=== PATIENT | female | born 1930 | race Caucasian/White ===

== ENCOUNTER 2016-07-16 10:02 | Inpatient (IN) | payer OTHER ==
[~2016-07-16] VITALS: Ht 152.4 cm; Wt 54.4 kg
[~2016-07-16 10:02] MED LIST: ALENDRONATE SOD70 MG PO; ALEVE220 MG PO; ALPRAZOLAM0.5 MG PO; ANTIVERT 12.512.5 MG PO; BUTALB/APAP/CAF1 TAB PO; CALCIUM/VITAMIN1 TA1 PO; COUMADIN 5 MG TA5 MG PO; DOCUSATE SODIU100 MG PO; FISH OIL CONC1000 MG PO; MULTIVITAMIN1 TAB PO; PERCOCET 325 MG1 TA2 PO; SENNA8.6 MG PO; ULTRAM(MONOGRAP50 MG PO
--- NOTE | 2016-07-16 10:05 | ED MVC/FALL/TRAUMA COMPLAINT ---
History of Present Illness General Chief Complaint: Hip Injury Stated Complaint: R SHOULDER PAIN, L HIP PAIN Source: patient, old records Exam Limitations: no limitations Vital Signs & Intake/Output Vital Signs & Intake/Output Vital Signs Date Time Temp Pulse Resp B/P B/P Pulse O2 O2 Flow FiO2 Mean Ox Delivery Rate 07/17 0742 98.2 89 20 113/69 97 Nasal 2.0L Cannula 07/17 0208 98.1 91 18 123/74 98 Nasal 2.0L Cannula 07/17 0000 95 Nasal 2.0L Cannula 07/16 2309 97.7 86 18 141/74 95 Nasal 2.0L Cannula 07/16 1518 97.4 95 18 159/75 98 Room Air 07/16 1350 20 100 Room Air 07/16 1349 104 156/78 ED Intake and Output 07/17 0000 07/16 1200 Intake Total 195 Output Total 60 Balance 135 Intake, IV 75 Intake, Oral 120 Output, Urine 60 Patient 120 lb Weight Allergies Coded Allergies: NO KNOWN ALLERGIES (03/02/12) Reconcile Medications Alprazolam 0.5 MG TABLET 1 TAB PO QPM SLEEP (Reported) Amlodipine Besylate 10 MG TABLET 1 TAB PO DAILY HTN (Reported) Butalb/Acetaminophen/Caffeine (Uaurqk-Owkpmkxo-Qcvx 50-325-40) 50 MG-325 MG-40 MG TABLET 1 TAB PO BIDP PRN HEADACHE (Reported) Calcium Carb & Citrate/Vit D3 (Calcium + D3 ER Tablet) 600 MG CALCIUM-500 UNIT TABLET.ER 1 TAB PO DAILY OSTEOPOROSIS (Reported) Multivitamin (Daily Multiple Vitamin) 1 EACH TABLET 1 TAB PO DAILY SUPPLEMENT (Reported) Naproxen 250 MG TABLET 1 TAB PO BID PAIN (Reported) Sennosides (Senna) 8.6 MG TABLET 2 TAB PO QPM CONSTIPATION (Reported) Tramadol HCl 50 MG TABLET 1 TAB PO TID PAIN (Reported) Triage Nurses Notes Reviewed? yes Onset: Abrupt Duration: constant Timing: single episode today Severity: severe Severity Numbers: 10 Method of Injury: direct blow, fall Loss of Consciousness: no loss of consciousness HPI: Patient is a 85-year-old female with past medical history of hypertension, history of breast cancer, cholecystectomy, mastectomy of the left breast, vertebroplasty, lumbar discectomy. AND RIGHT ARTHOPLASTY KNEE MAR 2014, osteoporosis who presents emergency room for mechanical fall which patient woke up in her normal state of health she was ambulating with slippers in her kitchen where she tripped on her slippers resulting in patient falling to the ground on the right side of her body resulting in right shoulder pain and severe stabbing left hip pain. Patient was brought in by ambulance cervical collar in place. Patient denies any preceding episode a lightheaded or dizzy sensation. Denies any neck or low back pain. Denies any chest pain shortness of breath abdominal pain. No head strike or loss of consciousness. Patient does state that recently she had an MRI of her left leg joint concerns of stress factor dictation stated below PATIENT: SERENA OROURKE PRESENT AGE: 85 PATIENT ACCOUNT NO: [id number] : 32 LOCATION: MRI ORDERING PHYSICIAN: NILE DUMONT MD SERVICE DATE: 06/20/16 EXAM TYPE: MRI - MRI-LT HIP W/O JULIA EXAMINATION: MR HIP WITHOUT CONTRAST, LEFT CLINICAL INFORMATION: Left hip pain. Rule out stress fracture. COMPARISON: None TECHNIQUE: MRI without contrast was performed on the left hip. FINDINGS: There is focal cortical thickening, focally prominent in a transverse linear configuration involving the lateral cortex of the proximal femoral diaphysis, 11 cm distal to the greater trochanter, with mild periosteal edema and prominent endosteal marrow edema consistent with an incomplete stress fracture. This involves approximately one-third of the cortical circumference. There is mild diffuse left hip joint space narrowing with a small effusion. No muscle strain or tear. IMPRESSION: Incomplete stress fracture of the proximal femoral diaphysis involving the lateral cortex as detailed in the comments. (TRI PRIDE) Past History Medical History Any Pertinent Medical History? see below for history Neurological: NONE EENT: NONE Cardiovascular: NONE Respiratory: NONE Gastrointestinal: BRAXTON Hepatic: NONE Renal: NONE Musculoskeletal: VERTEBROPLASTY Psychiatric: anxiety Endocrine: NONE Blood Disorders: anemia Cancer(s): breast cancer, R MASTECTOMY DOBIE MAN/Reproductive: NONE History of MRSA: No History of VRE: No History of CDIFF: No Pneumonia Vaccine: 02/25/09 Influenza Vaccine: 11/24/13 Surgical History Surgical History: RIGHT KNEE ARTHOPLASTY Psychosocial History Who do you live with Spouse Services at Home None What is your primary language Bengali Family History Hx Contributory? No (TRI PRIDE) Review of Systems Review of Systems Constitutional: Reports: no symptoms. Eyes: Reports: no symptoms. Ears, Nose, Throat, Mouth: Reports: no symptoms. Respiratory: Reports: no symptoms. Cardiovascular: Reports: no symptoms. Gastrointestinal/Abdominal: Reports: no symptoms. Genitourinary: Reports: no symptoms. Musculoskeletal: Reports: see HPI, joint pain. Skin: Reports: no symptoms. Neurological/Psychological: Reports: no symptoms. All Other Systems: Reviewed and Negative (TRI PRIDE) Physical Exam Physical Exam General Appearance: moderate distress Comments: HEENT: Normal EENT exam Neck: Supple, no lymphadenopathy, normal range of motion without pain or tenderness Cervical collar in place no central spinous tenderness Back: Nontender, no CVA tenderness. No central spinous tenderness Cardiovascular: Regular rate and rhythms no murmurs rubs or gallops, normal JVP Respiratory: Chest nontender. No respiratory distress.breath sounds clear to auscultation bilaterally Abdomen: Soft, nontender nondistended, no appreciable organomegaly. Normal bowel sounds. No ascites Extremity: No edema, no calf tenderness to palpation, normal and equal pulses. Right shoulder normal inspection generalized glenohumeral point tenderness Left hip noted severe point tenderness unable to actively move hip Left knee normal inspection Left lower extremity dermatomes intact pedal pulse +2 Neuro: Alert oriented x3, motor sensory normal, Skin: No appreciable rash on exposed skin, skin is warm and dry. Psych: Mood and affect is normal, memory and judgment is normal. Core Measures ACS in differential dx? No Severe Sepsis Present: No Septic Shock Present: No (TRI PRIDE) Progress Differential Diagnosis: aoritic dissection, abd injury, C/T/L spine injury, ext injury, ICH, pelvis injury, pnemothorax, spinal cord injury, FRACTURE Plan of Care: Orders Procedure Date/time Status Regular Diet 07/17 D Active Regular Diet 07/17 B Complete PROTHROMBIN TIME 07/17 06 Complete CBC WITHOUT DIFFERENTIAL 07/17 06 Complete BASIC ELECTROLYTES PLUS BUN&CR 07/17 06 Complete Wound Care/Dressing 07/17 0449 Active Regular Diet 07/16 D Complete Vital Signs 07/17 2239 Active Teach/Educate 07/17 2239 Active Pain Treatment and Response 07/17 2239 Active Nutritional Intake, Monitor 07/17 2239 Active Isolation 07/17 2239 Active Intake & Output 07/17 2239 Active Patient Care Conference 07/17 2239 Active Activity/Ambulation 05/23 2240 Active Pathway - chart 07/16 1454 Active FingerStick- Glucose 07/16 1453 Complete Code Status 07/16 1410 Active Hernández, Insertion/Removal/Asses 07/16 1408 Complete CULTURE,URINE 07/16 1408 Active URINALYSIS 07/16 1408 Complete PT Evaluate & Treat 07/16 UNK Active Activity/Ambulation 07/16 UNK Complete Current Medications Sig/Edenilson Start time Last Medication Dose Stop Time Status Admin Warfarin Sodium 5 MG COUMADIN 1700 ONE 07/17 1700 AC (Coumadin) 07/17 1701 Tramadol HCl 50 MG TID 07/17 1000 AC 07/17 (Ultram) 0946 Alprazolam 0.5 MG AT BEDTIME 07/16 2200 AC 07/16 (Xanax) 07/23 2158 2258 Senna/Docusate Sodium 2 TAB DAILY NEEDED PRN 07/16 1630 AC 07/17 (Senokot S) 0946 Amlodipine Besylate 10 MG DAILY 07/16 1628 AC 07/17 (Norvasc) 0945 Acetaminophen 325 MG Q4P PRN 07/16 1500 AC (Tylenol) Morphine Sulfate 4 MG Q4P PRN 07/16 1500 AC (Morphine) Oxycodone/ 1 TAB Q4P PRN 07/16 1500 AC Acetaminophen (Percocet) Laboratory Tests 07/17/16 1000: Anion Gap 8, Estimated GFR 60, BUN/Creatinine Ratio 22.2, PT 10.8, INR 1.03, CBC w Diff NO MAN DIFF REQ, RBC 2.86 L, MCV 92.9, MCH 31.3 H, RDW 14.6 H, MPV 8.9 , Gran % 78.0 H, Lymphocytes % 15.0 L, Monocytes % 6.7, Eosinophils % 0, Basophils % 0.3, Absolute Granulocytes 6.7 H, Absolute Lymphocytes 1.3, Absolute Monocytes 0.6, Absolute Eosinophils 0, Absolute Basophils 0, PUBS MCHC 33.7 07/16/16 1410: Urine Color YEL, Urine Clarity CLEAR, Urine pH 7.0, Ur Specific Dale 1.015, Urine Protein NEG, Urine Ketones TRACE H, Urine Nitrite NEG, Urine Bilirubin NEG, Urine Urobilinogen 0.2, Ur Leukocyte Esterase NEG, Ur Microscopic EXAM NOT REQUIRED, Urine Hemoglobin NEG, Urine Glucose 100 H Microbiology 07/16 1410 URINE ROUT: Urine Culture - RES On examination there is concerns of left FEMORAL FX Patient's extremities were neurovascularly intact X-rays confirm tomorrow fracture Dr. MUNGUIA discussed admission with in which she advised patient to not be placed with a splint at this time Discussed results with patient and family members were aware. Patient also had significant resolution of pain prior to admission (SELENE OLIVEROS,TRI) PATIENT SEEN AND EXAMINED WITH PA. CASE DISCUSSED WITH DR HAYES - WILL GO TO OR FROM ED. (NILDA WHITEHEAD,TYE) Diagnostic Imaging: Viewed by Me: Radiology Read. Radiology Impression: fracture Initial ED EKG: normal p-waves, normal QRS complex, normal sinus rhythm, 83 BPM, NSR Comments: PATIENT: SERENA OROURKE PRESENT AGE: 85 PATIENT ACCOUNT NO: [id number] : 32 LOCATION: [facility] ORDERING PHYSICIAN: TRI OLIVEROS SERVICE DATE: 07/16/16 EXAM TYPE: RAD - XRY-CHEST XRAY, ONE VIEW ONLY; XRY-FEMUR, LEFT 2 VIEWS; XRY-HIP 2-3 VIEWS, LEFT; XRY-SHOULDER COMPLETE-RIGHT EXAMINATION: Right shoulder, left femur, left hip and a chest. CLINICAL INFORMATION: Fall. Pain. COMPARISON: None TECHNIQUE: Right shoulder 4 views, left femur 2 views, left hip 2 views. Chest one view. FINDINGS: RIGHT SHOULDER: There is no visible acute fracture or dislocation. The glenohumeral joint space and AC joint is maintained. The soft tissues are normal. LEFT FEMUR: There is a displaced fracture left proximal femur. No additional fractures seen. The soft tissues are normal. LEFT HIP: There is no fracture or dislocation left hip. However there is displaced left proximal femoral fracture . The lower fracture fragment is rotated medially. The soft tissues are normal. CHEST: Both lungs are well-expanded and clear of acute pneumonic process. Heart size and pulmonary vascularity is normal. No gross bony abnormality seen. There are surgical emiliano in left axilla from previous intervention. There are no visible rib fractures on this exam. IMPRESSION: Displaced left proximal femoral fracture. There is medial rotation of the distal fragment. No fracture or dislocation involving the left hip or the right shoulder. Unremarkable chest exam. DICTATED BY: MARITO ARVIZU MD DATE/TIME DICTATED:07/16/161216 INSURANCE SERVICE REPRESENTATIVE:LUISA DATE/TIME TRANSCRIBED:07/16/161216 (TRI PRIDE) Departure Departure Disposition: STILL A PATIENT Condition: Stable Clinical Impression Primary Impression: Left femoral shaft fracture Referrals: JAMES GARCIA MD (PCP/Family) Departure Forms: Customer Survey General Discharge Information Admission Note Spoke With: EMILE GUTIERRES MD Documentation of Exam: Documentation of any treatments & extenuating circumstances including Concerns Regarding Discharge (functional status, medication knowledge or non-compliance, living conditions, etc.) that warrant an admission rather than observation: [ Patient requires orthopedic consultation, surgical intervention repeat labs and pain management.] (TRI PRIDE) PA/MANAGER OF DRILLING Co-Sign Statement Statement: ED Attending supervision documentation- [X] I saw and evaluated the patient. I have also reviewed all the pertinent lab results and diagnostic results. I agree with the findings and the plan of care as documented in the PA's/MANAGER OF DRILLING's documentation. [X] I have reviewed the ED Record and agree with the PA's/MANAGER OF DRILLING's documentation. [] Additions or exceptions (if any) to the PAs/MANAGER OF DRILLING's note and plan are summarized below: [] (NILDA WHITEHEAD,TYE) Critical Care Note Critical Care Note Critical Care Time: 30-74 min (TRI PRIDE)
--- NOTE | 2016-07-16 10:14 | NUR ---
PT BIBA FROM HOME S/P TRIP AND FALL TO GROUND. DENIES ANY HEADSTRIKE OR LOC. IS C/O LEFT FEMUR PAIN, RIGHT SHOULDER PAIN AND NECK PAIN. STATES THAT SHE WAS TOLD SHE HAS A STRESS FX TO HER LEFT FEMUR ALREADY DUE TO HAVING OSTEOPOROSIS AND A MEDICINE SHE IS ON. PT IS C-COLLARED FROM EMS WITH CARDBOARD SPLINT TO LOWER BODY. +DISTAL CMS NOTED.
--- NOTE | 2016-07-16 10:18 | NUR ---
DOMO Jo TO BEDSIDE FOR EVAL.
[2016-07-16 10:35] LABS: ABSOLUTE BASOPHIL COUNT 0 /CUMM (0.0-0.2); ABSOLUTE EOSINOPHIL COUNT 0.1 /CUMM (0.0-0.7); ABSOLUTE GRANULOCYTE CT 5.9 /CUMM (1.4-6.5); ABSOLUTE LYMPH COUNT 1.9 /CUMM (1.2-3.4); ABSOLUTE MONOCYTE COUNT 0.5 /CUMM (0.10-0.60); BASOPHIL % 0.3 % (0.0-2.0); EOSINOPHIL % 1.4 % (0-5); GRANULOCYTE % 69.3 % (42.2-75.2); HEMATOCRIT 36.5 % (37-47); MEAN CORPUSCULAR HGB 31.5 PG (27.0-31.0); MEAN CORPUSCULAR HGB CONC 33.8 G/DL (33.0-37.0); MEAN CORPUSCULAR VOLUME 93.1 FL (81.0-99.0); MEAN PLATELET VOLUME 8.4 FL (7.4-10.4); PLATELET COUNT 277 /CUMM (130-400); RBC DISTRIBUTION WIDTH 14.4 % (11.5-14.5); RED BLOOD CELL CT 3.92 /CUMM (4.20-5.40); WHITE BLOOD CELL COUNT 8.6 /CUMM (4.8-10.8)
--- NOTE | 2016-07-16 10:39 | NUR ---
LABS DRAWN AND SENT, LAV,SST,BLUE PINK AND COOK TOP.
--- NOTE | 2016-07-16 10:40 | NUR ---
IV EST. MEDICATED WITH 4MG MORPHINE, 0.5MG ATIVAN. PT STILL PRESENTS IN EXCRUCIATING PAIN, ORDER FOR ADDITIONAL 4MG MORPHINE (SEE MAR)
[2016-07-16 10:52] LABS: PT 9.8 SEC (9.4-12.5)
--- NOTE | 2016-07-16 10:52 | NUR ---
PT TO RAD.
[2016-07-16] MEDS ORDERED: TRAMADOL HCL50 M1 PO (12:00)
[2016-07-16] MEDS ORDERED: AMLODIPINE BESY10 M1 PO (12:00)
--- NOTE | 2016-07-16 12:19 | NUR ---
RETURNED FROM XRAY, REPORTS PAIN STILL 10/10 BUT DECLINED PAIN MEDS FOR PA UPON RE-EVAL.
--- NOTE | 2016-07-16 12:26 | RADIOLOGY REPORT ---
EXAMINATION: Right shoulder, left femur, left hip and a chest. CLINICAL INFORMATION: Fall. Pain. COMPARISON: None TECHNIQUE: Right shoulder 4 views, left femur 2 views, left hip 2 views. Chest one view. FINDINGS: RIGHT SHOULDER: There is no visible acute fracture or dislocation. The glenohumeral joint space and AC joint is maintained. The soft tissues are normal. LEFT FEMUR: There is a displaced fracture left proximal femur. No additional fractures seen. The soft tissues are normal. LEFT HIP: There is no fracture or dislocation left hip. However there is displaced left proximal femoral fracture . The lower fracture fragment is rotated medially. The soft tissues are normal. CHEST: Both lungs are well-expanded and clear of acute pneumonic process. Heart size and pulmonary vascularity is normal. No gross bony abnormality seen. There are surgical emiliano in left axilla from previous intervention. There are no visible rib fractures on this exam. IMPRESSION: Displaced left proximal femoral fracture. There is medial rotation of the distal fragment. No fracture or dislocation involving the left hip or the right shoulder. Unremarkable chest exam.
[2016-07-16] MEDS ORDERED: ALPRAZOLAM0.5 M4 PO (12:32)
[2016-07-16] MEDS ORDERED: BUTALB-ACETAMI1 EACH PO (12:32)
[2016-07-16] MEDS ORDERED: NAPROXEN250 M1 PO (12:32)
[2016-07-16] MEDS ORDERED: DAILY MULTIPLE1 EACH PO (12:33)
[2016-07-16] MEDS ORDERED: SENNA8.6 M3 PO (12:33)
[2016-07-16] MEDS ORDERED: CALCIUM + D3 E1 EACH PO (12:33)
--- NOTE | 2016-07-16 13:12 | History & Physical ---
YASEMIN MCALLISTER 07/16/16 1312: General Information and HPI MD Statement: I have seen and personally examined SERENA OROURKE and documented this H&P. The patient is a 85 year old F who presented with a patient stated chief complaint of left hip pain status post mechanical fall Source of Information: patient, family Exam Limitations: no limitations History of Present Illness: This is a 85-year-old lady with past medical history significant for osteoporosis, right knee total arthroplasty in 2015 for degenerative joint disease and osteoarthritis, lumbar discectomy, vertebroplasty, cholecystectomy, history of breast cancer status post mastectomy 23 years ago, insomnia, hypertension, headache, constipation presented to the [facility] emergency department with a left hip pain status post a mechanical fall. Of note patient has chronic left hip pain for which she follows her primary care doctor. Initially she was treated for bursitis based on x-ray findings, received cortisone shots. However she didn't get any relief after the medication. She got MRI hip which showed incomplete stress fracture at the site of proximal femur. she was seeing for left hip pain as an outpatient. She was brought to the hospital by ambulance today from home after sustaining a mechanical fall at home while ambulating in slippers in her kitchen. She reports she tripped on her slippers without precipitating symptoms. She denies any head trauma. She reports she fell on her side, and attempted to get up after the fall but was unable to do so. She started having worsening left hip pain radiating to knee, 10 out of 10, sharp and stabbing. Also reports mild right shoulder pain. She denies any loss of consciousness. She denies any dizziness or lightheadedness before the event. She denies any chest pain, difficulty breathing, racing of heart, cough, fever, chills. She denies any nausea, vomiting, abdominal pain, change in bladder or bowel habits. She denies any headache, numbness, weakness or tingling sensation. She denies any peripheral leg swelling. She denies any smoking, illicit drug use, alcohol abuse. She lives with her at home and she takes care of herself. Allergies/Medications Allergies: Coded Allergies: NO KNOWN ALLERGIES (03/02/12) Home Med list Alprazolam 0.5 MG TABLET 1 TAB PO QPM SLEEP (Reported) Amlodipine Besylate 10 MG TABLET 1 TAB PO DAILY HTN (Reported) Butalb/Acetaminophen/Caffeine (Tymjbb-Ujdxjhft-Nqee 50-325-40) 50 MG-325 MG-40 MG TABLET 1 TAB PO BIDP PRN HEADACHE (Reported) Calcium Carb & Citrate/Vit D3 (Calcium + D3 ER Tablet) 600 MG CALCIUM-500 UNIT TABLET.ER 1 TAB PO DAILY OSTEOPOROSIS (Reported) Multivitamin (Daily Multiple Vitamin) 1 EACH TABLET 1 TAB PO DAILY SUPPLEMENT (Reported) Naproxen 250 MG TABLET 1 TAB PO BID PAIN (Reported) Sennosides (Senna) 8.6 MG TABLET 2 TAB PO QPM CONSTIPATION (Reported) Tramadol HCl 50 MG TABLET 1 TAB PO TID PAIN (Reported) Compliance With Home Meds: GOOD Past History Travel History Traveled to [place] past 21 day No Medical History Neurological: NONE EENT: NONE Cardiovascular: NONE Respiratory: NONE Gastrointestinal: BRAXTON Hepatic: NONE Renal: NONE Musculoskeletal: VERTEBROPLASTY Psychiatric: anxiety Endocrine: NONE Blood Disorders: anemia Cancer(s): 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 EENTM: Denies: see HPI. Cardiovascular: Denies: chest pain, edema, orthopena, palpitations, peripheral edema, syncope. Respiratory: Denies: cough, hemoptysis, short of breath, sputum production, stridor, wheezing. GI: Denies: bloating, constipation, diarrhea, distention, nausea, vomiting. Genitourinary: Denies: discharge, dysuria, frequency, hematuria. Musculoskeletal: Denies: back pain, gout, joint pain. Skin: Denies: dryness, erythema, jaundice. Neurological/Psychological: Denies: confusion, depressed, dementia, headache, numbness, tingling, tremors. Exam & Diagnostic Data Last 24 Hrs of Vital Signs/I&O Vital Signs Date Time Temp Pulse Resp B/P B/P Pulse O2 O2 Flow FiO2 Mean Ox Delivery Rate 07/16 1350 20 100 Room Air 07/16 1349 104 156/78 07/16 1338 107 152/76 07/16 1219 96.4 84 20 160/74 100 Room Air 07/16 1010 98.7 99 22 181/85 100 Intake & Output 07/16 1600 07/16 0800 07/16 0000 Intake Total Output Total Balance Patient 54.431 kg Weight Physical Exam General Appearance Alert, Oriented X3, Cooperative, No Acute Distress Skin No Rashes, No Breakdown HEENT Atraumatic, PERRLA, EOMI, Mucous Membr. moist/pink Neck Supple, No JVD Lymphatic Cervical nl Cardiovascular Normal S1, Normal S2 Lungs Normal Air Movement Abdomen Normal Bowel Sounds, Soft, No Tenderness Neurological Normal Speech, Strength at 5/5 X4 Ext, Normal Tone, Sensation Intact Extremities No Clubbing, No Cyanosis, No Edema Vascular Normal Pulses, Pulses Symmetrical Assessment/Plan Assessment: This is a 85-year-old lady with past medical history significant for osteoporosis, right knee total arthroplasty in 2015 for degenerative joint disease and osteoarthritis, lumbar discectomy, vertebroplasty, cholecystectomy, history of breast cancer status post mastectomy 23 years ago, insomnia, hypertension, headache, constipation presented to the [facility] emergency department with a left hip pain status post a mechanical fall. Of note patient has chronic left hip pain for which she follows her primary care doctor. Initially she was treated for bursitis based on x-ray findings, received cortisone shots. However she didn't get any relief after the medication. She got MRI hip which showed incomplete stress fracture at the site of proximal femur. she was seeing for left hip pain as an outpatient. Vitals on admission-afebrile, heart rate 99, respiratory rate 22, blood pressure 181/85, saturating at 100% on room air. Pertinent labs on admission CT scan BEP normal Liver function tests normal Alkaline phosphatase 139 Chest x-ray-clear Hip x-ray IMPRESSION: Displaced left proximal femoral fracture. There is medial rotation of the distal fragment. No fracture or dislocation involving the left hip or the right shoulder. MRI without contrast was performed on the left hip as op There is focal cortical thickening, focally prominent in a transverse linear configuration involving the lateral cortex of the proximal femoral diaphysis, 11 cm distal to the greater trochanter, with mild periosteal edema and prominent endosteal marrow edema consistent with an incomplete stress fracture. This involves approximately one-third of the cortical circumference.There is mild diffuse left hip joint space narrowing with a small effusion. IMPRESSION: Incomplete stress fracture of the proximal femoral diaphysis involving the lateral cortex as detailed in the comments. Problem list 1. Left displaced proximal femur fracture 2. Hypertension 3. Headache 4. Constipation 5. Insomnia Left displaced proximal femur fracture She was brought to the hospital by ambulance today from home after sustaining a mechanical fall at home while ambulating in slippers in her kitchen. She denies any head trauma. She reports she fell on her side, and attempted to get up after the fall but was unable to do so. She started having worsening left hip pain radiating to knee, 10 out of 10, sharp and stabbing. Also reports mild right shoulder pain. She denies any loss of consciousness. She denies any dizziness or lightheadedness before the event. She got MRI hip which showed incomplete stress fracture at the site of proximal femur. she was seeing for left hip pain as an outpatient. * Admitted to general medicine floor for medical clearance and surgical repair * Monitor vitals closely every shift * Maintain oxygen saturation above 90% * provide supplemental oxygen if necessary * Orthopedic consult was placed * She is nothing by mouth for possible surgery tomorrow * IV fluids * Pain medication * Bowel regimen * Will follow-up with orthopedic recommendations Calculated RCRI * No history of heart disease * Not in acute congestive heart failure * No history of stroke * Not a diabetic patient * Kidney function tests were good * Low risk surgery She scored 0 points-0.4% cardiac risk. She is medically cleared for surgical repair of proximal femur Insomnia We continue home medication alprazolam 0.5 mg daily Hypertension Will continue amlodipine 10 mg daily Constipation Bowel regimen when necessary DVT prophylaxis Full code Nothing by mouth As Ranked By This Provider Problem List: 1. Left femoral shaft fracture Core Measures/Miscellaneous Acute Coronary Syndrome ACS Diagnosis: No Cerebrovascular Accident CVA/TIA Diagnosis: No Congestive Heart Failure CHF Diagnosis: No Venous Thromboembolism VTE Risk Factors: Age > 40 [facility] prophylaxis d/t: No contraindications No VTE Pharm Prophylaxis d/t: No contraindications VTE Diagnosis: No VTE Type: NONE VTE Confirmed by (Test): NONE Severe Sepsis Severe Sepsis Present: No Septic Shock Septic Shock Present: No Miscellaneous Documentation Attending Case Discussed With: IZATAY Hernandez MD Primary Care Physician: JOSE WHITEHEAD,JAMES Patient sees these Specialists orthopedics Level of Patient Care: General Medicine TRELL AUSTIN 07/16/16 1323: Resident Review Statement Resident Statement: examined this patient, discussed with international marketing coordinator, agreed with international marketing coordinator Other Findings: This is a 85 YO F w/ PMH of HTN, Breast cancer s/p mastectomy(Lt.), vertebroplasty, lumbar discectomy, Rt arthroplasty of knee (2014), osteoprosis who presents to [place] ED s/p mechanical fall. Please see above for more details. Physical exam on admission patient is tachycardic, vitals otherwise stable. Neck : Supple, no JVD, CV: RRR, no murmurs. Lungs: CTA BL. Abd: NL BS, Soft, NT, ND. Ext: No edema or calf tenderness. LLE internally rotated has tenderness to palpation. Pulse and sensation intact. Neurology: AAOx3. CN 3-12 wnl, normal speech. Labs significant for elevated alkaline phosphatase to 139, glucose 139, GFR 53, otherwise unremarkable. UA unremarkable. EKG: SR@83, no ST-T wave changes. Chest x-ray: No acute pathology, no rib fracture Lt femur x-ray, Lt hip x-ray, Rt. shoulder x-ray: Displaced left proximal femoral fracture. There is medial rotation of the distal fragment. No fracture or dislocation involving the left hip or the right shoulder. Assessment: 1-displaced left proximal femoral fracture 2-history of hypertension; chronic/stable Plan: * Vitals per protocol * Ortho consult placed appreciate recommendations. * Cardiac risk assessment preop: The patient does not have any history of CAD, heart failure, CVA, diabetes on insulin, creatinine is 1 and surgery is not considered as high risk. RCRI is 0.4. There is 1% risk of sudden cardiac , nonfatal CO, nonfatal cardiac arrest during surgery. 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 dvt prophyalxis as per ortho. d/wed patient and family bedisde in ER.
--- NOTE | 2016-07-16 13:50 | NUR ---
NO BP ON LEFT ARM DUE TO MASTECTOMY, PINK RESTRICTION BAND PLACED BY BRENDA PEREZ
--- NOTE | 2016-07-16 13:54 | Cons- Orthopedic ---
General Information and HPI Consulting Request Date of Consult: 07/16/16 Requested By: IZA WHITEHEAD,TAY Reason for Consult: LEFT FEMUR FRACTURE Source of Information: patient, family, old records Exam Limitations: no limitations History of Present Illness: The patient is an 85-year-old white female with past medical history significant for hypertension, history of breast cancer s/p mastectomy, vertebroplasty, lumbar discectomy, hx right total knee arthroplasty (2014), cholecystectomy, osteoporosis, and a known stress fracture of the left femur that she was seeing for as an outpatient. She was biba today from home after sustaining a mechanical fall at home while ambulating in slippers in her kitchen. She reports she tripped on her slippers without precipitating symptoms. She denies any head trauma. She reports she fell on her side, and attempted to get up after the fall but was unable to do so. She denies dizziness, shortness of breath, and chest pain. Allergies/Medications Allergies: Coded Allergies: NO KNOWN ALLERGIES (03/02/12) Home Med List: Alprazolam 0.5 MG TABLET 1 TAB PO QPM SLEEP (Reported) Amlodipine Besylate 10 MG TABLET 1 TAB PO DAILY HTN (Reported) Butalb/Acetaminophen/Caffeine (Bgpxkh-Plqvhvra-Sgzv 50-325-40) 50 MG-325 MG-40 MG TABLET 1 TAB PO BIDP PRN HEADACHE (Reported) Calcium Carb & Citrate/Vit D3 (Calcium + D3 ER Tablet) 600 MG CALCIUM-500 UNIT TABLET.ER 1 TAB PO DAILY OSTEOPOROSIS (Reported) Multivitamin (Daily Multiple Vitamin) 1 EACH TABLET 1 TAB PO DAILY SUPPLEMENT (Reported) Naproxen 250 MG TABLET 1 TAB PO BID PAIN (Reported) Sennosides (Senna) 8.6 MG TABLET 2 TAB PO QPM CONSTIPATION (Reported) Tramadol HCl 50 MG TABLET 1 TAB PO TID PAIN (Reported) Current Medications: Current Medications Sig/Edenilson Start time Last Medication Dose Route Stop Time Status Admin Lorazepam 0 .STK-MED ONE 07/16 1033 DC .ROUTE Lorazepam 0.5 MG ONCE ONE 07/16 1030 DC 07/16 IV 07/16 1031 1040 Morphine Sulfate 0 .STK-MED ONE 07/16 1336 DC .ROUTE Morphine Sulfate 6 MG ONCE ONE 07/16 1315 DC 07/16 IV 07/16 1316 1346 Morphine Sulfate 4 MG ONCE ONE 07/16 1045 DC 07/16 IV 07/16 1046 1040 Morphine Sulfate 0 .STK-MED ONE 07/16 1042 DC .ROUTE Morphine Sulfate 0 .STK-MED ONE 07/16 1034 DC .ROUTE Morphine Sulfate 4 MG ONCE ONE 07/16 1030 DC 07/16 IV 07/16 1031 1040 Past History Medical History Neurological: NONE EENT: NONE Cardiovascular: NONE Respiratory: NONE Gastrointestinal: BRAXTON Hepatic: NONE Renal: NONE Musculoskeletal: VERTEBROPLASTY Psychiatric: anxiety Endocrine: NONE Blood Disorders: anemia Cancer(s): breast cancer, 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 Surgical History Pertinent Surgical History: RIGHT KNEE ARTHOPLASTY Psychosocial History Services at Home: None Review of Systems Review of Systems: admits: left leg pain denies: dizziness shortness of breath, chest pains, dysuria Exam & Diagnostic Data Vital Signs and I&O Vital Signs Date Time Temp Pulse Resp B/P B/P Pulse O2 O2 Flow FiO2 Mean Ox Delivery Rate 07/16 1349 104 156/78 07/16 1338 107 152/76 07/16 1219 96.4 84 20 160/74 100 Room Air 07/16 1010 98.7 99 22 181/85 100 Intake & Output 07/16 1600 07/16 0800 07/16 0000 07/15 1600 07/15 0800 07/15 0000 Intake Total Output Total Balance Patient 120 lb Weight Physical Exam: General - alert & oriented x 3. comfortable. no acute distress. Skin - no rashes. Lungs - clear bilaterally. no w/r/r. Cardiac - s1s2. reg. Extremities - warm bilaterally. left thigh swollen. sensation grossly intact. palpable pulses distally. she is able to move her toes b/l. Last 24 Hours of Labs: Laboratory Tests 07/16 1023 Chemistry Sodium (137 - 145 mmol/L) 139 Potassium (3.5 - 5.1 mmol/L) 4.7 Chloride (98 - 107 mmol/L) 101 Carbon Dioxide (22 - 30 mmol/L) 30 Anion Gap (5 - 16) 9 BUN (7 - 17 mg/dL) 24 H Creatinine (0.5 - 1.0 mg/dL) 1.0 Estimated GFR (>60 ml/min) 53 L BUN/Creatinine Ratio (7 - 25 %) 24.0 Glucose (65 - 99 mg/dL) 139 H Calcium (8.4 - 10.2 mg/dL) 10.0 Total Bilirubin (0.2 - 1.3 mg/dL) 0.4 AST (14 - 36 U/L) 32 ALT (9 - 52 U/L) 42 Alkaline Phosphatase (<127 U/L) 139 H Troponin I (< 0.11 ng/ml) < 0.01 Total Protein (6.3 - 8.2 g/dL) 6.4 Albumin (3.5 - 5.0 g/dL) 3.8 Globulin (1.9 - 4.2 gm/dL) 2.6 Albumin/Globulin Ratio (1.1 - 2.2 %) 1.5 Coagulation PT (9.4 - 12.5 SEC) 9.8 INR (0.90 - 1.19) 0.93 Hematology CBC w Diff NO MAN DIFF REQ WBC (4.8 - 10.8 /CUMM) 8.6 RBC (4.20 - 5.40 /CUMM) 3.92 L Hgb (12.0 - 16.0 G/DL) 12.4 Hct (37 - 47 %) 36.5 L MCV (81.0 - 99.0 FL) 93.1 MCH (27.0 - 31.0 PG) 31.5 H RDW (11.5 - 14.5 %) 14.4 Plt Count (130 - 400 /CUMM) 277 MPV (7.4 - 10.4 FL) 8.4 Gran % (42.2 - 75.2 %) 69.3 Lymphocytes % (20.5 - 51.1 %) 22.7 Monocytes % (1.7 - 9.3 %) 6.3 Eosinophils % (0 - 5 %) 1.4 Basophils % (0.0 - 2.0 %) 0.3 Absolute Granulocytes (1.4 - 6.5 /CUMM) 5.9 Absolute Lymphocytes (1.2 - 3.4 /CUMM) 1.9 Absolute Monocytes (0.10 - 0.60 /CUMM) 0.5 Absolute Eosinophils (0.0 - 0.7 /CUMM) 0.1 Absolute Basophils (0.0 - 0.2 /CUMM) 0 PUBS MCHC (33.0 - 37.0 G/DL) 33.8 Other Results: EXAM TYPE: RAD - XRY-CHEST XRAY, ONE VIEW ONLY; XRY-FEMUR, LEFT 2 VIEWS; XRY-HIP 2-3 VIEWS, LEFT; XRY-SHOULDER COMPLETE-RIGHT EXAMINATION: Right shoulder, left femur, left hip and a chest. CLINICAL INFORMATION: Fall. Pain. COMPARISON: None TECHNIQUE: Right shoulder 4 views, left femur 2 views, left hip 2 views. Chest one view. FINDINGS: RIGHT SHOULDER: There is no visible acute fracture or dislocation. The glenohumeral joint space and AC joint is maintained. The soft tissues are normal. LEFT FEMUR: There is a displaced fracture left proximal femur. No additional fractures seen. The soft tissues are normal. LEFT HIP: There is no fracture or dislocation left hip. However there is displaced left proximal femoral fracture . The lower fracture fragment is rotated medially. The soft tissues are normal. CHEST: Both lungs are well-expanded and clear of acute pneumonic process. Heart size and pulmonary vascularity is normal. No gross bony abnormality seen. There are surgical emiliano in left axilla from previous intervention. There are no visible rib fractures on this exam. IMPRESSION: Displaced left proximal femoral fracture. There is medial rotation of the distal fragment. No fracture or dislocation involving the left hip or the right shoulder. Unremarkable chest exam. DICTATED BY: ANTONIETTA ARVIZU MDNAL DATE/TIME DICTATED:07/16/161216 PARTS SALESPERSON:LUISA DATE/TIME TRANSCRIBED:07/16/161216 Assessment/Plan Assessment/Plan The patient is an 85-year-old white female with a pmh significant for htn, hx of breast cancer s/p mastectomy, vertebroplasty, lumbar discectomy, hx right total knee arthroplasty (2014), cholecystectomy, osteoporosis, and a known stress fracture of the left femur that she was seeing for as an outpatien, who is here with a displaced left proximal femoral fracture keep npo pain control as needed recommend murrell catheter traction if available to be repaired today or tomorrow pending clearance will d/w Problem List: 1. Left femoral shaft fracture Consult Acknowledgment - Thank you for your consult request.
--- NOTE | 2016-07-16 14:01 | NUR ---
ADMITTING TEAM AT BEDSIDE. [facility] PLACED PER VERBAL ORDER FROM RESIDENT WITH PT CONSENT.
--- NOTE | 2016-07-16 14:13 | NUR ---
URINE TRIO SENT FROM [facility].
--- NOTE | 2016-07-16 14:39 | NUR ---
BED ASSIGNMENT 209-
--- NOTE | 2016-07-16 14:43 | NUR ---
PER OR, WILL BE CALLING FOR PT WITHIN 1 HOUR, REQUESTING PT REMAIN IN ER UNTIL THEN. STATING WAIT TIME WILL DEFINITELY NOT BE LONGER THAN 1 HOUR.
--- NOTE | 2016-07-16 14:52 | NUR ---
PER SURGICAL PA, OR TIME MAY MOVE BACK R/T OTHER EMERGENT CASE IN ED. SURGICAL PA TO NOTIFY NURSING OF DECISION; IF THIS PT'S SURGERY WILL BE 2ND, PT WILL GO TO THE FLOOR.
--- NOTE | 2016-07-16 15:05 | PN- Student ---
Subjective Subjective: Student H&P: Source: patient, family members CC: right shoulder pain and left hip/thigh pain HPI: Mrs. Juan is a previously healthy 85 yo white female who was comes to the ED by ambulance today following a mechanical fall in which she injured her right shoulder and left hip/thigh. She states that she was ambulating to her closet when she tripped over her slippers resulting in the fall. She described the pain as a severe stabbing pain on admission and said it was localized to the thigh area from knee to hip on her left leg. Her shoulder pain is less severe. She stated that she did not hit her head or lose consciousness and did not feel dizzy or lightheaded prior to the fall. She did say that she normally needs assistance of a walker when ambulating. She denies any back or neck pain, chest pain or palpitations, or difficulty breathing. Allergies: NKA, NKDA PMH: Patient's PMH is significant for osteoporosis (takes calcium/vit D3 supplementation), HTN (on amlodipine), breast cancer s/p mastectomy 23 years ago , and also had an MRI confirmed incomplete stress fracture of her left proximal femoral diaphysis on 06/20/2016, which she was trying to heal from without surgical intervention. Surgical Hx: Patient had mastectomy for breast cancer resection 23 years ago, cholecystecomy, vertebroplasty, discectomy of lumbar region, and a right knee arthroplasty in march of 2014. Social Hx: Lives at home with . denies smoking, etoh, or illicit drug use. Family Hx: No pertinent family hx ROS: constitutional- denies fever or chills or weight loss HEENT- denies headache, vision changes, dizziness CV- denies palpitations or chest pain, no leg pain or cold sensation in extremities Respiratory- denies chest pain, cough, or sputum production GI- denies N/V/D, No abdominal pain, no melena -denies dysuria and frequency, change in urine color or quantity MSK-joint pain, right shoulder pain, left thigh pain Skin- denies rashes or sores Neuro/Psych- denies any change in sensation, no depression or anxiety reported Objective Objective: Vital Signs Date Time Temp Pulse Resp B/P B/P Pulse O2 O2 Flow FiO2 Mean Ox Delivery Rate 07/16 1350 20 100 Room Air 07/16 1349 104 156/78 07/16 1338 107 152/76 07/16 1219 96.4 84 20 160/74 100 Room Air 07/16 1010 98.7 99 22 181/85 100 X-Ray Impression: -Displaced left proximal femoral fracture. There is medial rotation of the distal fragment. -No fracture or dislocation involving the left hip or the right shoulder. PE: General- patient is somewhat distressed but pain is controlled, she is cooperative, AAO x 3 HEENT-atraumatic, PERRLA, membranes moist and pink Neck-supple, no thyromegaly or lymphadenopathy, trachea is midline CV- S1 and S2 appreciated, regular rate and rhythm, no murmurs or rubs heard Resp- vesicular breath sounds heard throughout lung martin, good air flow Back- no spinal tenderness, step off deformity, or CVA tenderness Abdomen- no distention, bowel sounds heard, soft and non-tender to palpation Extremities- no edema noted, left lower leg is medially rotated, she is quite tender to palpation of the left hip, not able to actively move left leg, left knee is normal as is dorsal pedal pulse (2+) and left leg dermatomes. Right shoulder is normal to inspection, tender to palpation of the glenohumeral joint. Skin- no rash or erythema noted, skin is warm, dry and well perfused Orders Procedure Date/time Status Nothing by Mouth 07/16 D Active Pathway - chart 07/16 1454 Active FingerStick- Glucose 07/16 1453 Active Code Status 07/16 1410 Active Murrell, Insertion/Removal/Asses 07/16 1408 Active CULTURE,URINE 07/16 1408 Active URINALYSIS 07/16 1408 Complete Pathway - chart 07/16 1330 Active House Staff 07/16 1330 Active Patient Data 07/16 1330 Active Admit to inpatient 07/16 1315 Active Patient Data 07/16 1309 Active TROPONIN LEVEL 07/16 1018 Complete PROTHROMBIN TIME 07/16 1018 Complete COMPREHENSIVE METABOLIC PANEL 07/16 1018 Complete CBC WITHOUT DIFFERENTIAL 07/16 1018 Complete EKG 07/16 1018 Active TYPE & SCREEN (NOT X-MATCH) 07/16 1018 Complete VTE Mechanical Prophylaxis 07/16 UNK Active Vital Signs 07/16 UNK Active Intake & Output 07/16 UNK Active Results Results: Laboratory Tests 07/16/16 1410: Urine Color YEL, Urine Clarity CLEAR, Urine pH 7.0, Ur Specific [place] 1.015, Urine Protein NEG, Urine Ketones TRACE H, Urine Nitrite NEG, Urine Bilirubin NEG, Urine Urobilinogen 0.2, Ur Leukocyte Esterase NEG, Ur Microscopic EXAM NOT REQUIRED, Urine Hemoglobin NEG, Urine Glucose 100 H 07/16/16 1023: Anion Gap 9, Estimated GFR 53 L, BUN/Creatinine Ratio 24.0, Glucose 139 H, Calcium 10.0, Total Bilirubin 0.4, AST 32, ALT 42, Alkaline Phosphatase 139 H, Troponin I < 0.01, Total Protein 6.4, Albumin 3.8, Globulin 2.6, Albumin/ Globulin Ratio 1.5, PT 9.8, INR 0.93, CBC w Diff NO MAN DIFF REQ, RBC 3.92 L, MCV 93.1, MCH 31.5 H, RDW 14.4, MPV 8.4, Gran % 69.3, Lymphocytes % 22.7, Monocytes % 6.3, Eosinophils % 1.4, Basophils % 0.3, Absolute Granulocytes 5.9, Absolute Lymphocytes 1.9, Absolute Monocytes 0.5, Absolute Eosinophils 0.1, Absolute Basophils 0, PUBS MCHC 33.8 Microbiology 07/16 1410 URINE ROUT: Urine Culture - RECD Assessment/Plan Assessment: Mrs. Juan is an 85 yo white female with a past history of osteoporosis, HTN, breast cancer s/p mastectomy 23 yrs ago, cholecystectomy, vertebroplasty, lumbar discectomy, and right knee arthroplasty (mar 2014). She also had a recent MRI that confirmed an incomplete stress fracture of the left femur. She was tayler in by ambulance following a mechanical fall in which she injured her right shoulder and left hip/thigh. Following physical exam and x-ray it was found that she has a displaced left proximal femur fracture. Xray of her shoulder was negative for any fractures or dislocations. She has been given morphine in the ED for pain control and orthopedic surgery consult was ordered. Plan: Continue morphine right now for pain control and keep NPO as per ortho. Will continue treatment with her home medications and will wait for orthopedics to schedule surgery either today or most likely tomorrow. Problem List: 1. displaced left femur fracture - Admit to general medicine floor for medical clearance and surgical repair - IV fluids and monitor vitals and labs - maintain Oxygen saturation of 90% - initiate bowel regimen - Orthopedic consult ordered, will follow recommendations -RCRI is 0.4. Low risk of cardiac event during surgery Orthopedic recommendations: -keep npo -pain control as needed -recommend murrell catheter -traction if available -to be repaired today or tomorrow pending clearance -will d/w - morphine for pain control 2. Osteoporosis - Hold oral home meds as per ortho, switch to IV. Possible candidate for bisphosphonates. 3. HTN - continue amlodipine 10mg daily. 4. Insomnia - continue alprazolam 0.5mg daily 5. Constipation - begin bowel regimen Diet: NPO, normal diet following surgery Code Status: Full code DVT prophylaxis: Code Status: Full code DVT prophylaxis:
--- NOTE | 2016-07-16 15:18 | NUR ---
PER SURGICAL PA, THIS PT WILL GO TO OR AT OR BEFORE 1630 TODAY.
--- NOTE | 2016-07-16 22:34 | PN- Orthopedic ---
Subjective Subjective: Postop check: Patient is comfortable, mild pain left hip, no other complaints. Objective Vital Signs and I&Os Vital Signs Date Time Temp Pulse Resp B/P B/P Pulse O2 O2 Flow FiO2 Mean Ox Delivery Rate 07/16 1518 97.4 95 18 159/75 98 Room Air 07/16 1350 20 100 Room Air 07/16 1349 104 156/78 07/16 1338 107 152/76 07/16 1219 96.4 84 20 160/74 100 Room Air 07/16 1010 98.7 99 22 181/85 100 Intake & Output 07/16 1600 07/16 0800 07/16 0000 07/15 1600 07/15 0800 07/15 0000 Intake Total Output Total Balance Patient 120 lb Weight Physical Exam: Well-developed well-nourished no apparent distress. HEENT: Atraumatic, extraocular motion intact Neck: Supple, no lymphadenopathy Respiratory: No respiratory distress Extremities: No edema left lower extremity hip dressing in place, Dressing clean dry and intact with minimal bloody staining Mild thigh edema No signs of infection. No shortening or rotation Hip range of motion is limited and without unexpected pain Neurovascularly intact distally Bilateral calves are supple, nontender. Neuro: Alert and oriented x3 Psych: Mood affect normal, normal memory normal judgment. Skin: Warm and dry, no rash on exposed skin Assessment/Plan Assessment/Plan Post op day 0 status post left hip subtrochanteric fracture IM nailing Perioperative antibiotics. Pain medication as needed. Toe-touch weightbearing with physical therapy, out of bed tomorrow. Coumadin for DVT prophylaxis. ALPS for DVT prophylaxis. DC IV fluids and tolerating by mouth. Regular diet Dressing change postop day 2 Discontinue Hernández tomorrow Check labs in a.m. Core Measures/Miscellaneous Venous Thromboembolism VTE Risk Factors: Age > 40, Surgery VTE Contraindications: No Contraindications VTE Diagnosis: No VTE Type: NONE VTE Confirmed by (Test): NONE Beta Tiara Is Beta Tiara a Home Med? No Antibiotics Is Patient on Antibiotics? Yes If Yes: prophylaxis
--- NOTE | 2016-07-16 22:43 | RADIOLOGY REPORT ---
EXAMINATION: XR HIP, LEFT CLINICAL INFORMATION: Left hip fracture repair. COMPARISON: 07/16/2016 TECHNIQUE: 2 views, 104 intraoperative fluoroscopic images of the left hip. Total fluoroscopic time 1 minute 52 seconds. FINDINGS: Series 11 images demonstrate manipulation of fracture fragments of the proximal left femoral diaphyseal fracture. There is then placement of an intramedullary nail with proximal femoral neck screw and distal interlocking screw. Final alignment is near-anatomic. IMPRESSION: Fluoroscopic guidance for internal fixation of left femoral diaphyseal fracture with resultant near-anatomic alignment.
[2016-07-16 23:09] VITALS: BP 141/74
[2016-07-17 02:08] VITALS: BP 123/74
--- NOTE | 2016-07-17 07:16 | PN- Orthopedic ---
See Addendum Subjective Subjective: The patient was seen this morning postoperatively day #1. She reports that her pain is under adequate control and has no other complaints at the current time. Objective Vital Signs and I&Os Vital Signs Date Time Temp Pulse Resp B/P B/P Pulse O2 O2 Flow FiO2 Mean Ox Delivery Rate 07/17 0208 98.1 91 18 123/74 98 Nasal 2.0L Cannula 07/17 0000 95 Nasal 2.0L Cannula 07/16 2309 97.7 86 18 141/74 95 Nasal 2.0L Cannula 07/16 1518 97.4 95 18 159/75 98 Room Air 07/16 1350 20 100 Room Air 07/16 1349 104 156/78 07/16 1338 107 152/76 07/16 1219 96.4 84 20 160/74 100 Room Air 07/16 1010 98.7 99 22 181/85 100 Intake & Output 07/17 0800 07/17 0000 07/16 1600 07/16 0800 07/16 0000 07/15 1600 Intake Total 195 Output Total 60 Balance 135 Intake, IV 75 Intake, Oral 120 Output, Urine 60 Patient 120 lb 120 lb Weight Weight Reported by Patient Measurement Method Physical Exam: Gen.: Alert and in no obvious distress Skin: Warm and dry Extremities: Bilateral lower extremities are warm without calf tenderness or significant edema. Gross motor and sensory are intact. Left hip dressing is slightly blood tinged at the inferior aspect but otherwise intact without signs of infection or significant edema. Assessment/Plan Assessment/Plan Assessment: 85-year-old female status post left femoral IMHS postoperative day # 1. The patient is progressing as expected and her pain is under adequate control. Recommendations: Out of bed with physical therapy patient is toe-touch weightbearing Follow-up morning laboratory studies and dose Coumadin for an INR between 2 and 3 Continue current pain regiment DC Hernández catheter and Hep-Lock IV fluids if urine output is adequate GI and DVT prophylaxis First surgical dressing change tomorrow Continue care per primary team
[2016-07-17 07:42] VITALS: BP 113/69
--- NOTE | 2016-07-17 08:00 | NUR ---
NURSING NOTE: CHAVIRA CATHETER REMOVED AT THIS TIME. DUE TO VOID BY 4PM. WILL CONTINUE TO MONITOR.
--- NOTE | 2016-07-17 08:03 | PN- Housestaff ---
YASEMIN MCALLISTER 07/17/16 0803: Subjective Follow-up For: Left displaced proximal femur fracture status post ORIF Complaints: pain scale (0-10) Subjective: Patient was seen and examined this morning. She is alert, awake and oriented to time place and person. She denied any complaints this morning. No acute events noticed overnight. She is status post open reduction and internal fixation of femur day 1. She is tolerating her diet. Denies any pain at the site of surgery Denies any chest pain, difficulty breathing, headache, weakness. Vitals stable. Afebrile, heart rate 89, respiratory rate 20, blood pressure 120 /69, saturating at 93% on 2 L. Foleys was discontinued this morning Review of Systems Constitutional: Denies: chills, diaphoresis, fever, malaise, weakness, unexplained weight loss. Objective Last 24 Hrs of Vital Signs/I&O Vital Signs Date Time Temp Pulse Resp B/P B/P Pulse O2 O2 Flow FiO2 Mean Ox Delivery Rate 07/17 0742 98.2 89 20 113/69 97 Nasal 2.0L Cannula 07/17 0208 98.1 91 18 123/74 98 Nasal 2.0L Cannula 07/17 0000 95 Nasal 2.0L Cannula 07/16 2309 97.7 86 18 141/74 95 Nasal 2.0L Cannula 07/16 1518 97.4 95 18 159/75 98 Room Air Intake & Output 07/17 1600 07/17 0800 07/17 0000 Intake Total 585 195 Output Total 170 60 Balance 415 135 Intake, IV 525 75 Intake, Oral 60 120 Number 0 Bowel Movements Output, Urine 170 60 Patient 54.431 kg Weight Weight Reported by Patient Measurement Method Physical Exam General Appearance: Alert, Oriented X3, Cooperative, No Acute Distress, Mild Distress Skin: No Rashes, No Breakdown HEENT: Atraumatic, PERRLA, EOMI, Mucous Membr. moist/pink Neck: Supple, No JVD Lymphatic: Axillary nl, Cervical nl Cardiovascular: Normal S1, Normal S2 Lungs: Normal Air Movement Abdomen: Normal Bowel Sounds, Soft, No Tenderness Neurological: Strength at 5/5 X4 Ext, Sensation Intact, Cranial Nerves 3-12 NL Extremities: No Clubbing, No Cyanosis, No Edema Vascular: Pulses Symmetrical Current Medications: Current Medications Sig/Edenilson Start time Last Medication Dose Route Stop Time Status Admin Acetaminophen 325 MG Q4P PRN 07/16 1500 AC PO Alprazolam 0.5 MG AT BEDTIME 07/16 2200 AC 07/16 PO 07/23 2159 2258 Amlodipine Besylate 10 MG DAILY 07/16 1628 AC 07/17 PO 0945 Cefazolin Sodium 2 GM IQ8 07/17 0000 DC 07/17 N/A 1 UNIT IV 07/17 0829 0826 Fentanyl Citrate 250 MCG .STK-MED ONE 07/16 1536 DC IM 07/16 153 Hydromorphone HCl 2 MG .STK-MED ONE 07/16 195 DC IM 07/16 1954 Hydromorphone HCl 2 MG .STK-MED ONE 07/16 153 ID IM 07/16 153 Midazolam HCl 2 MG .STK-MED ONE 07/17 1999 ID IM 07/16 2000 Midazolam HCl 2 MG .STK-MED ONE 07/16 153 DC IM 07/16 1538 Morphine Sulfate 4 MG Q4P PRN 07/16 1500 AC IV Ondansetron HCl 4 MG .STK-MED ONE 07/16 2021 ID IM 07/16 202 Oxycodone/ 1 TAB Q4P PRN 07/16 1500 AC Acetaminophen PO Patient Medication 1 ED .STK-MED ONE 07/17 1315 DC Teaching ED 07/17 1316 Senna/Docusate Sodium 2 TAB DAILY NEEDED PRN 07/16 1630 AC 07/17 PO 0946 Sodium Chloride 500 ML BOLUS ONE 07/17 0600 DC 07/17 IV 07/17 0659 0604 Sodium Chloride 1,000 ML ONCE ONE 07/16 1845 ID 07/16 IV 07/17 0804 2030 Tramadol HCl 50 MG TID 07/17 1000 AC 07/17 PO 0946 Warfarin Sodium 5 MG COUMADIN 1700 ONE 07/17 1700 AC PO 07/17 1701 Warfarin Sodium 5 MG ONCE ONE 07/17 1999 DC 07/16 PO 07/16 2000 225 Last 24 Hrs of Lab/Gómez Results Last 24 Hrs of Labs/Mics: Laboratory Tests 07/17/16 1000: Anion Gap 8, Estimated GFR 60, BUN/Creatinine Ratio 22.2, PT 10.8, INR 1.03, CBC w Diff NO MAN DIFF REQ, RBC 2.86 L, MCV 92.9, MCH 31.3 H, RDW 14.6 H, MPV 8.9 , Gran % 78.0 H, Lymphocytes % 15.0 L, Monocytes % 6.7, Eosinophils % 0, Basophils % 0.3, Absolute Granulocytes 6.7 H, Absolute Lymphocytes 1.3, Absolute Monocytes 0.6, Absolute Eosinophils 0, Absolute Basophils 0, PUBS MCHC 33.7 07/16/16 1410: Urine Color YEL, Urine Clarity CLEAR, Urine pH 7.0, Ur Specific [place] 1.015, Urine Protein NEG, Urine Ketones TRACE H, Urine Nitrite NEG, Urine Bilirubin NEG, Urine Urobilinogen 0.2, Ur Leukocyte Esterase NEG, Ur Microscopic EXAM NOT REQUIRED, Urine Hemoglobin NEG, Urine Glucose 100 H Microbiology 07/16 141 URINE ROUT: Urine Culture - RES Assessment/Plan Assessment: This is a 85-year-old lady with past medical history significant for osteoporosis, right knee total arthroplasty in 2015 for degenerative joint disease and osteoarthritis, lumbar discectomy, vertebroplasty, cholecystectomy, history of breast cancer status post mastectomy 23 years ago, insomnia, hypertension, headache, constipation presented to the [facility] emergency department with a left hip pain status post a mechanical fall. Of note patient has chronic left hip pain for which she follows her primary care doctor. Initially she was treated for bursitis based on x-ray findings, received cortisone shots. However she didn't get any relief after the medication. She got MRI hip which showed incomplete stress fracture at the site of proximal femur. she was seeing for left hip pain as an outpatient. Vitals on admission-afebrile, heart rate 99, respiratory rate 22, blood pressure 181/85, saturating at 100% on room air. Pertinent labs on admission CT scan BEP normal Liver function tests normal Alkaline phosphatase 139 Chest x-ray-clear Hip x-ray IMPRESSION: Displaced left proximal femoral fracture. There is medial rotation of the distal fragment. No fracture or dislocation involving the left hip or the right shoulder. MRI without contrast was performed on the left hip as op There is focal cortical thickening, focally prominent in a transverse linear configuration involving the lateral cortex of the proximal femoral diaphysis, 11 cm distal to the greater trochanter, with mild periosteal edema and prominent endosteal marrow edema consistent with an incomplete stress fracture. This involves approximately one-third of the cortical circumference.There is mild diffuse left hip joint space narrowing with a small effusion. IMPRESSION: Incomplete stress fracture of the proximal femoral diaphysis involving the lateral cortex as detailed in the comments. Problem list 1. Left displaced proximal femur fracture 2. Hypertension 3. Headache 4. Constipation 5. Insomnia Left displaced proximal femur fracture s/p ORIF She was brought to the hospital by ambulance today from home after sustaining a mechanical fall at home while ambulating in slippers in her kitchen. She denies any head trauma. She reports she fell on her side, and attempted to get up after the fall but was unable to do so. She started having worsening left hip pain radiating to knee, 10 out of 10, sharp and stabbing. Also reports mild right shoulder pain. She denies any loss of consciousness. She denies any dizziness or lightheadedness before the event. She got MRI hip which showed incomplete stress fracture at the site of proximal femur. she was seeing for left hip pain as an outpatient. * Admitted to general medicine floor for medical clearance and surgical repair * Monitor vitals closely every shift * Maintain oxygen saturation above 90% * provide supplemental oxygen if necessary * Left displaced proximal femur fracture status post ORIF-day 1 * TolerateD surgery * On regular diet, tolerating * Pain medication-tramadol * PT on board * Foleys catheter discontinued * Bowel regimen * Will follow-up with orthopedic recommendations DVT prophylaxis status post hip surgery Patient underwent hip surgery on 07/16/2016. She needs anticoagulation for DVT prophylaxis for minimum 3 months. She needs Lovenox bridging with Coumadin * Patient declined Lovenox shots * We will dose her Coumadin daily based on INR * Follow-up INR tomorrow * Goal INR 2-3 Anemia status post surgery Patient underwent hip surgery on 07/16/2016. * Hemoglobin 12.7 on admission * Hemoglobin dropped to 8.9 today * We'll continue to monitor her hemoglobin and hematocrit * We'll transfuse if hemoglobin drops further Calculated RCRI * No history of heart disease * Not in acute congestive heart failure * No history of stroke * Not a diabetic patient * Kidney function tests were good * Low risk surgery She scored 0 points-0.4% cardiac risk. She is medically cleared for surgical repair of proximal femur Insomnia We continue home medication alprazolam 0.5 mg daily Hypertension Will continue amlodipine 10 mg daily Constipation Bowel regimen when necessary DVT prophylaxis Full code Regular diet Problem List: 1. Left femoral shaft fracture Pain Ratin Pain Location: LEFT FEMUR Pain Goal: Remain pain free Pain Plan: TRAMADOL Tomorrow's Labs & Rationales: CBC seen in the setting of anemia INR in setting of dosing Coumadin TAY COUCH 07/17/16 1119: Attending MD Review Statement Attending Statement Attending MD Statement: examined this patient, discuss w/resident/PA/PYROMETER MECHANIC, agreed w/resident/PA/PYROMETER MECHANIC, discussed with family, reviewed EMR data (avail), discussed with nursing, discussed with case mgmt, reviewed images, amended to note Attending Assessment/Plan: Patient with no significant cardiac history comes with femur fracture s/p ORIF, admitted to medical f/u orthopedics, pain control, dvt prophyalxis as per ortho WITH COUAMDIN 5mg, patient declined lovenox bridging. d/wed patient bedside, PT consult and d/c planning.
--- NOTE | 2016-07-17 08:11 | NUR ---
07/17/16 0600 URINE OUTPUT 170ML REPORTED TO SURGICAL DOMO Oconnor. SEE EMAR.
[2016-07-17 10:48] LABS: ABSOLUTE BASOPHIL COUNT 0 /CUMM (0.0-0.2); ABSOLUTE EOSINOPHIL COUNT 0 /CUMM (0.0-0.7)
[2016-07-17 10:51] LABS: PT 10.8 SEC (9.4-12.5)
[2016-07-17 10:52] LABS: ABSOLUTE GRANULOCYTE CT 6.7 /CUMM (1.4-6.5); ABSOLUTE LYMPH COUNT 1.3 /CUMM (1.2-3.4); ABSOLUTE MONOCYTE COUNT 0.6 /CUMM (0.10-0.60); BASOPHIL % 0.3 % (0.0-2.0); EOSINOPHIL % 0 % (0-5); MEAN CORPUSCULAR HGB 31.3 PG (27.0-31.0); MEAN CORPUSCULAR HGB CONC 33.7 G/DL (33.0-37.0); MEAN CORPUSCULAR VOLUME 92.9 FL (81.0-99.0); MEAN PLATELET VOLUME 8.9 FL (7.4-10.4); PLATELET COUNT 218 /CUMM (130-400); RBC DISTRIBUTION WIDTH 14.6 % (11.5-14.5); WHITE BLOOD CELL COUNT 8.6 /CUMM (4.8-10.8)
[2016-07-17 10:53] LABS: HEMATOCRIT 26.6 % (37-47); RED BLOOD CELL CT 2.86 /CUMM (4.20-5.40)
[2016-07-17 14:34] VITALS: BP 136/78
--- NOTE | 2016-07-17 15:59 | Operative Report ---
Operative/Inv Procedure Report Surgery Date: 07/16/16 Name of Procedure: IM rodding left subtrochanteric/femoral shaft fracture Pre-Operative Diagnosis: Left subtrochanteric/shaft fracture Post-Operative Diagnosis: Same Estimated Blood Loss: 50ml to 100ml Surgeon/Roll Mill Operator: Sanna Anesthesia: general endotracheal tube Implants: Ermelinda gamma nail 10 x 34, 75mm hip screw, 40 mm distal interlock screw Drains: None Specimens: None Complications: None Condition: Stable Operative Indication: Patient is an 85-year-old woman who was admitted with a left subtrochanteric femur fracture. She has a history of a stress fracture in this area. She had a fall resulting in severe pain and deformity of her evaluation revealed the subtrochanteric femur fracture. It is a relatively transverse fracture consistent with her pathologic stress fracture. I recommended intramedullary rodding. Risks, benefits and expectations of the surgical procedure were discussed with the patient and family which included but were not limited to persistent hip pain thigh pain, anesthesia risks, injury to blood vessel or nerve, malunion, nonunion and infection, DVT patient wished to proceed with surgical management. Operative/Procedure Note Note: Patient was brought to the operating room and transferred to the operating table area once under appropriate anesthesia the patient was placed in position on the fracture table all bony prominences were well-padded. Left lower extremity was prepped and draped in standard fashion. Preoperative IV antibiotic's were given prophylactically. Prior to initiating incision I confirm that I was able to restore leg lengths since there was significant deformity of the proximal femur and significant abduction of the proximal fragment of the femoral shaft/ subtrochanteric femur fracture. Standard oblique incision was made proximal to the greater trochanter. I used an awl to identify my starting point. I proceeded to enter the greater trochanter. This was followed by placement of the beaded guidewire. I confirmed position of the guidewire across the fracture site into the distal fragment. This was taken down to the supracondylar area and the femur. Measurements were taken and a 34 cm nail would be needed. I then proceeded to ream proximally to a 13 to accept the gamma nail this was followed by reaming distally with a 9 mm followed by increments of 0.5 up to a size 11-1/2 for anticipated insertion of a size 10 nail. Once I completed the reaming I placed the definitive size 10 x 34 centimeter gamma nail. I was satisfied with position of the nail, reduction of the fracture. The placement of the nail was facilitated by pressure and counterpressure and areas to facilitate passing of the nail as well as previously with the reamers. Once I was satisfied with my hardware positioning I proceeded with the hip screw component of the gamma nail. Guidewire was placed I confirm that I was in the femoral neck and into the femoral head. It was slightly posterior and central. I measured followed by reaming and then placement of the definitive hip screw in position. I was satisfied with the position of the hip screw in all planes I then proceeded to placing the locking screw and in standard fashion. I then turned my attention to the distal interlock. I did this in the freehand fashion. I confirmed position of the distal interlock on fluoroscopic images in both AP lateral planes. I was satisfied that I was within the distal interlock slotted hole. Copious irrigation of the hip followed and copious irrigation of the other incisions followed as well. Prior to placement distal interlock I did release the traction on the left lower extremity to facilitate apposition of the fracture site and hopefully decrease union time. After copious irrigation I then closed the soft tissues with 2-0 Vicryl suture followed by skin closure with emiliano. Appropriate just his were applied and patient was awakened and taken the recovery room in good condition. No intraoperative complications. Blood loss was approximately 100 mL. Discharge Disposition: PACU
--- NOTE | 2016-07-17 17:46 | NUR ---
NURSING NOTE: PATIENT ATTEMPTED TO VOID ON OWN. PATIENT UNABLE TO VOID. PATIENT STRAIGHT CATH'ED AT THIS TIME. 150ML DARK YELLOW URINE COLLECTED. INTERNAL INVESTIGATOR 407 NOTIFIED. WILL CONTINUE TO MONITOR.
--- NOTE | 2016-07-17 17:48 | NUR ---
NURSING NOTE: AGENCY RECRUITER TO COME ASSESS PATIENT.
--- NOTE | 2016-07-17 19:00 | NUR ---
NURSING NOTE: NEW ORDER IV BOLUS NS X1 NOW. IV PLACED AND FLUIDS STARTED PER ORDER. LUNGS SOUND CLEAR. PATIENT DENIES SOB. REPORT PASSED ON TO ONCOMING RN.
[2016-07-17 22:45] VITALS: BP 140/74
--- NOTE | 2016-07-18 07:29 | PN- Orthopedic ---
See Addendum Subjective Subjective: Pt has no major complaints this morning. She admits to some soreness, but mostly when she is moving. She reports some difficulty transferring to the chair yesterday with PT due to pain. Otherwise, appetite is decreased but she is tolerating po. No nausea. Voiding, but still awaiting BM. Objective Vital Signs and I&Os Vital Signs Date Time Temp Pulse Resp B/P B/P Pulse O2 O2 Flow FiO2 Mean Ox Delivery Rate 07/17 2245 99.5 99 20 140/74 98 Room Air 07/17 1434 98.3 104 22 136/78 96 07/17 1358 Nasal 2.0L Cannula 07/17 0742 98.2 89 20 113/69 97 Nasal 2.0L Cannula Intake & Output 07/18 0800 07/18 0000 07/17 1600 07/17 0800 07/17 0000 07/16 1600 Intake Total 1275 585 195 Output Total 1 170 60 Balance -1 1275 415 135 Intake, IV 375 525 75 Intake, Oral 900 60 120 Number 0 Bowel Movements Output, Urine 1 170 60 Patient 120 lb 120 lb Weight Weight Reported by Patient Measurement Method Physical Exam: Gen: Pt is awake and alert. NAD. Cardiac: regular Pulm: CTA bilaterally Ext: The surgical dressing was removed. Incisions are intact with emiliano in place. No drainage, redness, or significant ecchymosis. Thigh is swollen, as expected, but soft. Dry dressing was replaced. LE sensation is intact. Strength of DF and PF 4/5. Assessment/Plan Assessment/Plan Pt is an 85 yo F w a hx of htn, breast ca, who is now POD #2 s/p L hip IMHS. She is progressing well from a surgical standpoint. Will benefit from STR, as advised by PT. Plan: -Continue physical therapy for mobilization. Toe-touch weight-bearing as tolerated with rolling walker. -Continue Coumadin for DVT prophylaxis. Follow-up INR and titrate dose to keep INR 2-3. -Bowel regimen. -Pain control. -24 hours of antibiotics are complete. -Dry dressing changes once daily. -Plan for discharge to short-term rehabilitation most likely tomorrow.
[2016-07-18 07:41] VITALS: BP 119/59
--- NOTE | 2016-07-18 08:05 | PN- Housestaff ---
YASEMIN MCALLISTER 07/18/16 0805: Subjective Follow-up For: Left displaced proximal femur fracture status post ORIF Complaints: pain scale (0-10) Subjective: Patient was seen and examined this morning. She is alert, awake and oriented to time place and person. She denied any complaints this morning. No acute events noticed overnight. She is status post open reduction and internal fixation of femur Fracture- day 2. She is tolerating her diet. Denies any pain at the site of surgery, reports mild pain on movement. Denies any chest pain, difficulty breathing, headache, weakness. Vitals stable. Afebrile, heart rate 103, respiratory rate 20, blood pressure 120/69, saturating at 93% on 2 L. Foleys was discontinued. Able to void. Had one bowel movement. Review of Systems Constitutional: Denies: chills, diaphoresis, fever, malaise. Objective Last 24 Hrs of Vital Signs/I&O Vital Signs Date Time Temp Pulse Resp B/P B/P Pulse O2 O2 Flow FiO2 Mean Ox Delivery Rate 07/18 0855 100 120/60 07/18 0741 99.5 103 20 119/59 92 Room Air 07/17 2245 99.5 99 20 140/74 98 Room Air 07/17 1434 98.3 104 22 136/78 96 07/17 1358 Nasal 2.0L Cannula Intake & Output 07/18 1600 07/18 0800 07/18 0000 Intake Total Output Total 600 1 Balance -600 -1 Output, Urine 600 1 Physical Exam General Appearance: Alert, Oriented X3, Cooperative, No Acute Distress Skin: No Rashes, No Breakdown HEENT: Atraumatic, PERRLA, EOMI, Mucous Membr. moist/pink Neck: Supple, No JVD Lymphatic: Cervical nl Cardiovascular: Normal S1, Normal S2 Lungs: Normal Air Movement Abdomen: Normal Bowel Sounds, Soft, No Tenderness Extremities: No Clubbing, No Cyanosis, No Edema Vascular: Normal Pulses Current Medications: Current Medications Sig/Edenilson Start time Last Medication Dose Route Stop Time Status Admin Acetaminophen 650 MG .STK-MED ONE 07/17 1428 DC PO 07/17 1429 Acetaminophen 325 MG Q4P PRN 07/16 1500 AC 07/17 PO 142 Alprazolam 0.5 MG AT BEDTIME 07/16 2199 AC 07/17 PO 07/23 Amlodipine Besylate 10 MG DAILY 07/16 1628 AC 07/18 PO 0855 Morphine Sulfate 4 MG Q4P PRN 07/16 1500 DC 07/18 IV 0103 Oxycodone/ 1 TAB Q4P PRN 07/16 1500 AC Acetaminophen PO Senna/Docusate Sodium 2 TAB DAILY NEEDED PRN 07/16 1630 AC 07/17 PO 0946 Sodium Chloride 500 ML BOLUS ONE 07/17 1900 DC 07/17 IV 07/17 195 1904 Tramadol HCl 50 MG TID 07/17 1000 AC 07/18 PO 0855 Warfarin Sodium 5 MG COUMADIN 1700 ONE 07/18 1700 AC PO 07/18 1701 Warfarin Sodium 5 MG COUMADIN 1700 ONE 07/17 1700 DC 07/17 PO 07/17 170 1800 Last 24 Hrs of Lab/Gómez Results Last 24 Hrs of Labs/Mics: Laboratory Tests 07/18/16 0655: Anion Gap 7, Estimated GFR > 60, BUN/Creatinine Ratio 25.7 H, PT 15.3 H, INR 1.46 H, CBC w Diff NO MAN DIFF REQ, RBC 2.68 L, MCV 93.6, MCH 31.3 H, RDW 14.9 H, MPV 9.3, Gran % 69.4, Lymphocytes % 20.4 L, Monocytes % 9.1, Eosinophils % 0.7, Basophils % 0.4, Absolute Granulocytes 6.0, Absolute Lymphocytes 1.8, Absolute Monocytes 0.8 H, Absolute Eosinophils 0.1, Absolute Basophils 0, PUBS MCHC 33.5 Assessment/Plan Assessment: This is a 85-year-old lady with past medical history significant for osteoporosis, right knee total arthroplasty in 2015 for degenerative joint disease and osteoarthritis, lumbar discectomy, vertebroplasty, cholecystectomy, history of breast cancer status post mastectomy 23 years ago, insomnia, hypertension, headache, constipation presented to the [facility] emergency department with a left hip pain status post a mechanical fall. Of note patient has chronic left hip pain for which she follows her primary care doctor. Initially she was treated for bursitis based on x-ray findings, received cortisone shots. However she didn't get any relief after the medication. She got MRI hip which showed incomplete stress fracture at the site of proximal femur. she was seeing for left hip pain as an outpatient. Vitals on admission-afebrile, heart rate 99, respiratory rate 22, blood pressure 181/85, saturating at 100% on room air. Pertinent labs on admission CT scan BEP normal Liver function tests normal Alkaline phosphatase 139 Chest x-ray-clear Hip x-ray IMPRESSION: Displaced left proximal femoral fracture. There is medial rotation of the distal fragment. No fracture or dislocation involving the left hip or the right shoulder. MRI without contrast was performed on the left hip as op There is focal cortical thickening, focally prominent in a transverse linear configuration involving the lateral cortex of the proximal femoral diaphysis, 11 cm distal to the greater trochanter, with mild periosteal edema and prominent endosteal marrow edema consistent with an incomplete stress fracture. This involves approximately one-third of the cortical circumference.There is mild diffuse left hip joint space narrowing with a small effusion. IMPRESSION: Incomplete stress fracture of the proximal femoral diaphysis involving the lateral cortex as detailed in the comments. Problem list 1. Left displaced proximal femur fracture 2. Hypertension 3. Headache 4. Constipation 5. Insomnia Left displaced proximal femur fracture s/p ORIF She was brought to the hospital by ambulance today from home after sustaining a mechanical fall at home while ambulating in slippers in her kitchen. She denies any head trauma. She reports she fell on her side, and attempted to get up after the fall but was unable to do so. She started having worsening left hip pain radiating to knee, 10 out of 10, sharp and stabbing. Also reports mild right shoulder pain. She denies any loss of consciousness. She denies any dizziness or lightheadedness before the event. She got MRI hip which showed incomplete stress fracture at the site of proximal femur. she was seeing for left hip pain as an outpatient. * Admitted to general medicine floor for medical clearance and surgical repair * Monitor vitals closely every shift * Maintain oxygen saturation above 90% * provide supplemental oxygen if necessary * Left displaced proximal femur fracture status post ORIF-day2 * TolerateD surgery * On regular diet, tolerating * Pain medication-tramadol * PT on board * Foleys catheter discontinued * Bowel regimen * Will follow-up with orthopedic recommendations DVT prophylaxis status post hip surgery Patient underwent hip surgery on 07/16/2016. She needs anticoagulation for DVT prophylaxis for minimum 3 months. She needs Lovenox bridging with Coumadin * Patient declined Lovenox shots * We will dose her Coumadin daily based on INR * Coumadin 5 mg today, INR 1.46 * Follow-up INR tomorrow * Goal INR 2-3 Anemia status post surgery Patient underwent hip surgery on 07/16/2016. * Hemoglobin 12.7 on admission * Hemoglobin dropped to 8.4 today * We'll continue to monitor her hemoglobin and hematocrit * We'll transfuse if hemoglobin drops further Calculated RCRI * No history of heart disease * Not in acute congestive heart failure * No history of stroke * Not a diabetic patient * Kidney function tests were good * Low risk surgery She scored 0 points-0.4% cardiac risk. She is medically cleared for surgical repair of proximal femur Insomnia We continue home medication alprazolam 0.5 mg daily Hypertension Will continue amlodipine 10 mg daily Constipation Bowel regimen when necessary DVT prophylaxis Full code Regular diet Problem List: 1. Left femoral shaft fracture Pain Ratin Pain Location: left hip Pain Goal: Remain pain free Pain Plan: tramadol Tomorrow's Labs & Rationales: Cbc in the setting of anemia INR in the setting of dosing warfarin TAY COUCH 07/18/16 1312: Attending MD Review Statement Attending Statement Attending MD Statement: examined this patient, discuss w/resident/PA/SOUND PERSON, agreed w/resident/PA/SOUND PERSON, discussed with family, reviewed EMR data (avail), discussed with nursing, discussed with case mgmt, reviewed images, amended to note Attending Assessment/Plan: Patient with no significant cardiac history comes with femur fracture s/p ORIF, admitted to medical f/u orthopedics, pain control, dvt prophyalxis as per ortho WITH COUAMDIN 5mg, patient declined lovenox bridging. d/fri patient bedside, PT consult and d/c planning to STR.
[2016-07-18 08:16] LABS: PT 15.3 SEC (9.4-12.5)
[2016-07-18 08:32] LABS: ABSOLUTE BASOPHIL COUNT 0 /CUMM (0.0-0.2); ABSOLUTE EOSINOPHIL COUNT 0.1 /CUMM (0.0-0.7); ABSOLUTE LYMPH COUNT 1.8 /CUMM (1.2-3.4); ABSOLUTE MONOCYTE COUNT 0.8 /CUMM (0.10-0.60); BASOPHIL % 0.4 % (0.0-2.0); EOSINOPHIL % 0.7 % (0-5); GRANULOCYTE % 69.4 % (42.2-75.2); HEMATOCRIT 25.1 % (37-47); MEAN CORPUSCULAR HGB 31.3 PG (27.0-31.0); MEAN CORPUSCULAR HGB CONC 33.5 G/DL (33.0-37.0); MEAN CORPUSCULAR VOLUME 93.6 FL (81.0-99.0); MEAN PLATELET VOLUME 9.3 FL (7.4-10.4); PLATELET COUNT 195 /CUMM (130-400); RBC DISTRIBUTION WIDTH 14.9 % (11.5-14.5); RED BLOOD CELL CT 2.68 /CUMM (4.20-5.40); WHITE BLOOD CELL COUNT 8.6 /CUMM (4.8-10.8)
--- NOTE | 2016-07-18 09:07 | Patient Discharge Instructions ---
Discharge Instructions General Discharge Information You were seen/treated for: left proximal displaced femur fracture You had these procedures: IM rodding left subtrochanteric/femoral shaft fracture Watch for these problems: pain, drainage, redness at the site of surgery Special Instructions: please f/u pcp in 1-2 weks please f/u orthopedic doctor in 1-2 weeks -needs to take warfarin for 3months for dvt -prophylaxis after hip surgery. -please follow up your pcp for warfarin dose adjustment based on INR Diet Continue normal diet: Yes Activity Activity Self Limited: Yes Acute Coronary Syndrome Inclusion Criteria At DC or during hospital stay patient has or had the following: ACS DIAGNOSIS No Discharge Core Measures Meds if any: Prescribed or Continued at Discharge Meds if any: NOT Prescribed or Continued at Discharge Congestive Heart Failure Inclusion Criteria At DC or during hospital stay patient has or had the following: CHF DIAGNOSIS No Discharge Core Measures Meds if any: Prescribed or Continued at Discharge Meds if any: NOT Prescribed or Continued at Discharge Cerebrovascular accident Inclusion Criteria At DC or during hospital stay patient has or had the following: CVA/TIA Diagnosis No Discharge Core Measures Meds if any: Prescribed or Continued at Discharge Meds if any: NOT Prescribed or Continued at Discharge Venous thromboembolism Inclusion Criteria VTE Diagnosis No VTE Type NONE VTE Confirmed by (Test) NONE Discharge Core Measures - Per Current guidelines, there needs to be overlap - treatment for the first 5 days of Warfarin therapy. - If discharged on Warfarin prior to 5 days of - overlap therapy, the patient will need to be - assessed for post discharge needs including - *Post discharge parental anticoagulation - *Warfarin and/or parental anticoagulation education - *Follow up date to check INR post discharge At least 5 days overlap therapy as Inpatient No Meds if any: Prescribed or Continued at Discharge Note: Overlap Therapy is Warfarin and Anticoagulant Meds if any: NOT Prescribed or Continued at Discharge
[2016-07-18] MEDS ORDERED: COUMADIN5 M2 PO (09:08)
--- NOTE | 2016-07-18 13:16 | Discharge Summary ---
Visit Information Visit Dates Admission Date: 07/16/16 Discharge Date: 07/19/16 Hospital Course Course Attending Physician: TAY COUCH MD Primary Care Physician: JAMES GARCIA MD Consulting Request: Consulting Specialty: Orthopedics Hospital Course: This is a 85 YO F w/ PMH of HTN, Breast cancer s/p mastectomy(Lt.), vertebroplasty, lumbar discectomy, Rt arthroplasty of knee (2014), osteoprosis who presents to [place] ED s/p mechanical fall. Physical exam on admission: tachycardic, vitals otherwise stable. Neck: Supple, no JVD, CV: RRR, no murmurs. Lungs: CTA BL. Abd: NL BS, Soft, NT, ND. Ext: No edema or calf tenderness. LLE internally rotated has tenderness to palpation. Pulse and sensation intact. Neurology: AAOx3. CN 3-12 wnl, normal speech. Labs significant for elevated alkaline phosphatase to 139, glucose 139, GFR 53, otherwise unremarkable. UA unremarkable. EKG: SR@83, no ST-T wave changes. Chest x-ray: No acute pathology, no rib fracture Lt femur x-ray, Lt hip x-ray, Rt. shoulder x-ray: Displaced left proximal femoral fracture. There is medial rotation of the distal fragment. No fracture or dislocation involving the left hip or the right shoulder. Of note, she had an MRI done prior to this admission on 06/20/16 which showed Incomplete stress fracture of the proximal femoral diaphysis involving the lateral cortex and Mild-moderate left hip osteoarthritis. The following problems were addressed during the course of her hospital stay: #displaced left proximal femoral fracture:S/p L hip IMHS on 07/16/16. Was followed by orthopedic who recommended: physical therapy for mobilization, Toe- touch weight-bearing as tolerated with rolling walker. Orthopedic recommended DVT prophylaxis with warfarin, patient declined bridging with Lovenox And was agreeable to take warfarin only. INR levels were monitored closely: INR on 07/19/16: 2.49. Received pain management and bowel regimen. [facility] database checked before discharge. #Hypertension: Chronic/stable. 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 #DVT prophylaxis: On warfarin #CODE STATUS: Full code Complications: None Allergies: Coded Allergies: NO KNOWN ALLERGIES (03/02/12) Significant Procedures: 07/16/16: IM rodding left subtrochanteric/femoral shaft fracture Disposition Summary Disposition Principal Diagnosis: Displaced left proximal femoral fracture Additional Diagnosis: HTN Discharge Disposition: SNF Discharge Instructions General Discharge Information Code Status: Full Code Patient's Diet: Regular Patient's Activity: As tolerated per PT. Follow-Up Instructions/Appts: Please f/u pcp in 1-2 weks Please f/u orthopedic doctor in 1-2 weeks Should take warfarin for 3months for dvt -prophylaxis after hip surgery. -Please follow up your pcp for warfarin dose adjustment based on INR Medications at Discharge Discharge Medications: Continue taking these medications: Tramadol HCl (Tramadol HCl) 50 MG TABLET 1 Tablet ORAL THREE TIMES DAILY Qty = 40 Comments: Last Taken:07/19/16 Time:9AM Amlodipine Besylate (Amlodipine Besylate) 10 MG TABLET 1 Tablet ORAL DAILY Qty = 30 Comments: Last Taken:07/19/16 Time:9AM Butalb/Acetaminophen/Caffeine (Axjjdt-Avlosimf-Cuqi 50-325-40) 50 MG-325 MG-40 MG TABLET 1 Tablet ORAL 2 x Daily as needed as needed for HEADACHE Qty = 40 Comments: NOT GIVEN Alprazolam (Alprazolam) 0.5 MG TABLET 1 Tablet ORAL Every night Qty = 60 Comments: Last Taken:07/18/16 Time:10PM Naproxen (Naproxen) 250 MG TABLET 1 Tablet ORAL TWICE DAILY Qty = 20 Comments: NOT GIVEN Calcium Carb & Citrate/Vit D3 (Calcium + D3 ER Tablet) 600 MG CALCIUM-500 UNIT TABLET.ER 1 Tablet ORAL DAILY Comments: NOT GIVEN Multivitamin (Daily Multiple Vitamin) 1 EACH TABLET 1 Tablet ORAL DAILY Comments: NOT GIVEN Sennosides (Senna) 8.6 MG TABLET 2 Tablet ORAL Every night Comments: Last Taken:07/19/16 Time:9PM Start taking the following new medications: Warfarin Sodium (Coumadin) 4 MG TABLET 1 Tablet ORAL DAILY Qty = 30 No Refills Copies To: JOSE WHITEHEAD,JAMES
--- NOTE | 2016-07-18 13:55 | NUR ---
LATE ENTRY: PT OOB TO BSC WITH MAX ASSIST OF 2. PT PASSED FLATUS AND VERY SMALL AMOUNT OF STOOL AT THIS TIME. WILL CONTINUE TO MONITOR.
[2016-07-18 14:38] VITALS: BP 132/77
[2016-07-18 22:04] VITALS: BP 147/74
[2016-07-19 06:45] VITALS: BP 123/53
[2016-07-19 07:58] LABS: ABSOLUTE BASOPHIL COUNT 0 /CUMM (0.0-0.2); ABSOLUTE EOSINOPHIL COUNT 0.1 /CUMM (0.0-0.7); ABSOLUTE GRANULOCYTE CT 6.4 /CUMM (1.4-6.5); ABSOLUTE LYMPH COUNT 1.8 /CUMM (1.2-3.4); BASOPHIL % 0.3 % (0.0-2.0); EOSINOPHIL % 1.1 % (0-5); GRANULOCYTE % 68.7 % (42.2-75.2); HEMATOCRIT 25.8 % (37-47); MEAN CORPUSCULAR HGB 31.6 PG (27.0-31.0); MEAN CORPUSCULAR HGB CONC 34.1 G/DL (33.0-37.0); MEAN CORPUSCULAR VOLUME 92.7 FL (81.0-99.0); MEAN PLATELET VOLUME 9.4 FL (7.4-10.4); PLATELET COUNT 184 /CUMM (130-400); RBC DISTRIBUTION WIDTH 14.6 % (11.5-14.5); RED BLOOD CELL CT 2.78 /CUMM (4.20-5.40); WHITE BLOOD CELL COUNT 9.3 /CUMM (4.8-10.8)
--- NOTE | 2016-07-19 08:09 | PN- Housestaff ---
YASEMIN MCALLISTER 07/19/16 0809: Subjective Follow-up For: Left displaced proximal femur fracture status post ORIF Complaints: pain scale (0-10) Subjective: Patient was seen and examined this morning. She is alert, awake and oriented to time place and person. She denied any complaints this morning. No acute events noticed overnight. She is status post open reduction and internal fixation of femur Fracture- day 3. She is tolerating her diet. Denies any pain at the site of surgery, reports mild pain on movement. Denies any chest pain, difficulty breathing, headache, weakness. Vitals stable. Afebrile, heart rate 98, respiratory rate 20, blood pressure 120 /69, saturating at 93% on 2 L. Foleys was discontinued. Able to void. Had one bowel movement. Review of Systems Constitutional: Denies: chills, diaphoresis, fever, malaise, weakness. Objective Last 24 Hrs of Vital Signs/I&O Vital Signs Date Time Temp Pulse Resp B/P B/P Pulse O2 O2 Flow FiO2 Mean Ox Delivery Rate 07/19 0645 99.4 97 18 123/53 95 Room Air 07/18 2204 98.7 97 18 147/74 92 Room Air 07/18 1438 98.5 105 20 132/77 92 Room Air 07/18 0855 100 120/60 Intake & Output 07/19 1600 07/19 0800 07/19 0000 Intake Total 120 150 Output Total 400 Balance -280 150 Intake, Oral 120 150 Output, Urine 400 Physical Exam General Appearance: Alert, Oriented X3, Cooperative, No Acute Distress Skin: No Rashes, No Breakdown HEENT: Atraumatic, PERRLA, EOMI Neck: Supple, No JVD Lymphatic: Cervical nl Cardiovascular: Normal S1, Normal S2, No Murmurs Lungs: Normal Air Movement Abdomen: Normal Bowel Sounds, Soft, No Tenderness Extremities: No Clubbing, No Cyanosis, No Edema Vascular: Pulses Symmetrical Current Medications: Current Medications Sig/Edenilson Start time Last Medication Dose Route Stop Time Status Admin Acetaminophen 325 MG Q4P PRN 07/16 1500 AC 07/17 PO 1428 Alprazolam 0.5 MG AT BEDTIME 07/16 2199 AC 07/18 PO 07/23 Amlodipine Besylate 10 MG DAILY 07/16 162 AC 07/18 PO 0855 Morphine Sulfate 4 MG Q4P PRN 07/16 1500 DC 07/18 IV 0103 Oxycodone/ 1 TAB Q4P PRN 07/16 1500 AC Acetaminophen PO Senna/Docusate Sodium 2 TAB DAILY NEEDED PRN 07/16 1630 AC 07/18 PO 2054 Tramadol HCl 50 MG TID 07/17 1000 AC 07/18 PO 2051 Warfarin Sodium 5 MG COUMADIN 1700 ONE 07/19 1700 UNVr PO 07/19 170 Warfarin Sodium 5 MG COUMADIN 170 ONE 07/18 1700 DC 07/18 PO 07/18 170 1600 Last 24 Hrs of Lab/Gómez Results Last 24 Hrs of Labs/Mics: Laboratory Tests 07/19/16 0605: Anion Gap 5, Estimated GFR > 60, BUN/Creatinine Ratio 17.1, PT 25.9 H, INR 2.49 H, CBC w Diff NO MAN DIFF REQ, RBC 2.78 L, MCV 92.7, MCH 31.6 H, RDW 14.6 H, MPV 9.4, Gran % 68.7, Lymphocytes % 18.9 L, Monocytes % 11.0 H, Eosinophils % 1.1, Basophils % 0.3, Absolute Granulocytes 6.4, Absolute Lymphocytes 1.8, Absolute Monocytes 1.0 H, Absolute Eosinophils 0.1, Absolute Basophils 0, PUBS MCHC 34.1 Assessment/Plan Assessment: This is a 85-year-old lady with past medical history significant for osteoporosis, right knee total arthroplasty in 2015 for degenerative joint disease and osteoarthritis, lumbar discectomy, vertebroplasty, cholecystectomy, history of breast cancer status post mastectomy 23 years ago, insomnia, hypertension, headache, constipation presented to the [facility] emergency department with a left hip pain status post a mechanical fall. Of note patient has chronic left hip pain for which she follows her primary care doctor. Initially she was treated for bursitis based on x-ray findings, received cortisone shots. However she didn't get any relief after the medication. She got MRI hip which showed incomplete stress fracture at the site of proximal femur. she was seeing for left hip pain as an outpatient. Vitals on admission-afebrile, heart rate 99, respiratory rate 22, blood pressure 181/85, saturating at 100% on room air. Pertinent labs on admission CT scan BEP normal Liver function tests normal Alkaline phosphatase 139 Chest x-ray-clear Hip x-ray IMPRESSION: Displaced left proximal femoral fracture. There is medial rotation of the distal fragment. No fracture or dislocation involving the left hip or the right shoulder. MRI without contrast was performed on the left hip as op There is focal cortical thickening, focally prominent in a transverse linear configuration involving the lateral cortex of the proximal femoral diaphysis, 11 cm distal to the greater trochanter, with mild periosteal edema and prominent endosteal marrow edema consistent with an incomplete stress fracture. This involves approximately one-third of the cortical circumference.There is mild diffuse left hip joint space narrowing with a small effusion. IMPRESSION: Incomplete stress fracture of the proximal femoral diaphysis involving the lateral cortex as detailed in the comments. Problem list 1. Left displaced proximal femur fracture 2. Hypertension 3. Headache 4. Constipation 5. Insomnia Left displaced proximal femur fracture s/p ORIF She was brought to the hospital by ambulance today from home after sustaining a mechanical fall at home while ambulating in slippers in her kitchen. She denies any head trauma. She reports she fell on her side, and attempted to get up after the fall but was unable to do so. She started having worsening left hip pain radiating to knee, 10 out of 10, sharp and stabbing. Also reports mild right shoulder pain. She denies any loss of consciousness. She denies any dizziness or lightheadedness before the event. She got MRI hip which showed incomplete stress fracture at the site of proximal femur. she was seeing for left hip pain as an outpatient. * Admitted to general medicine floor for medical clearance and surgical repair * Monitor vitals closely every shift * Maintain oxygen saturation above 90% * provide supplemental oxygen if necessary * Left displaced proximal femur fracture status post ORIF-day3 * TolerateD surgery * On regular diet, tolerating * Pain medication-tramadol * PT on board- recommended STR. * Foleys catheter discontinued * Bowel regimen * Will follow-up with orthopedic recommendations DVT prophylaxis status post hip surgery Patient underwent hip surgery on 07/16/2016. She needs anticoagulation for DVT prophylaxis for minimum 3 months. She needs Lovenox bridging with Coumadin * Patient declined Lovenox shots * We will dose her Coumadin daily based on INR * Coumadin 5 mg today, INR 1.46 * Follow-up INR tomorrow * Goal INR 2-3 Anemia status post surgery Patient underwent hip surgery on 07/16/2016. * Hemoglobin 12.7 on admission * Hemoglobin dropped to 8.4 today * We'll continue to monitor her hemoglobin and hematocrit * We'll transfuse if hemoglobin drops further Calculated RCRI * No history of heart disease * Not in acute congestive heart failure * No history of stroke * Not a diabetic patient * Kidney function tests were good * Low risk surgery She scored 0 points-0.4% cardiac risk. She is medically cleared for surgical repair of proximal femur Insomnia We continue home medication alprazolam 0.5 mg daily Hypertension Will continue amlodipine 10 mg daily Constipation Bowel regimen when necessary DVT prophylaxis Full code Regular diet Problem List: 1. Left femoral shaft fracture Pain Ratin Pain Location: LEFT HIP Pain Goal: Remain pain free Pain Plan: TRAMADOL Tomorrow's Labs & Rationales: INR Consulting Request: Consulting Specialty: Orthopedics TAY COUCH 07/19/16 1044: Attending MD Review Statement Attending Statement Attending MD Statement: examined this patient, discuss w/resident/PA/[employer], agreed w/resident/PA/[employer], discussed with family, reviewed EMR data (avail), discussed with nursing, discussed with case mgmt, reviewed images, amended to note Attending Assessment/Plan: Patient with no significant cardiac history comes with femur fracture s/p ORIF, admitted to medical f/u orthopedics, pain control, dvt prophyalxis as per ortho WITH COUAMDIN 4 mg, patient declined lovenox bridging. d/wed patient bedside, PT consult and d/c planning to STR. f/u O/p PCP and check INR at rehab frequently.
[2016-07-19 08:19] LABS: PT 25.9 SEC (9.4-12.5)
[2016-07-19] MEDS ORDERED: COUMADIN4 M1 PO (09:31)
[2016-07-19 11:19] VITALS: BP 123/53
== END 2016-07-19 14:28 | DRG 482 ==
LOC: DELPENDDIS → ERH 10:02 → ERHI 13:15 → 2NB 13:15 → ENRESERV 14:36 → 2NB 16:19 → ENPENDDIS 07-17 10:53 → 2NB 07-19 14:28
PROVIDERS: Physician Assistant; Physician Assistant Surgical; ADMIT Internal Medicine
PROC: 0QS736Z Reposition Left Upper Femur with Intramedullary Internal Fixation Device, Percutaneous Approach (ICD-10-PCS; principal; 2016-07-16)
PROC: 3E0T3CZ (ICD-10-PCS; 2016-07-16)
DX: M80.052A Age-related osteoporosis with current pathological fracture, left femur, initial encounter for fracture (principal); D64.9 Anemia, unspecified; I10 Essential (primary) hypertension; K59.00 Constipation, unspecified; G47.00 Insomnia, unspecified; W01.0XXA Fall on same level from slipping, tripping and stumbling without subsequent striking against object, initial encounter; Y92.000 Kitchen of unspecified non-institutional (private) residence as the place of occurrence of the external cause; Z85.3 Personal history of malignant neoplasm of breast
CPT/HCPCS: 2NBSP; 36415; 73030-RT; 73502-LT; 73552; 81003; 82436; 87086; 93005; 93010; 96374; 96375; 97110-GO; 97116-GO; 97161-GP; 97530-GO; J0690; J2405; J7040

== ENCOUNTER 2016-08-22 08:39 | Emergency (ER) | payer OTHER ==
[~2016-08-22] VITALS: Ht 152.4 cm; Wt 54.4 kg
[~2016-08-22 08:39] MED LIST changes: +ALPRAZOLAM0.5 M4 PO; +AMLODIPINE BESY10 M1 PO; +BUTALB-ACETAMI1 EACH PO; +CALCIUM + D3 E1 EACH PO; +COUMADIN4 M1 PO; +COUMADIN5 M2 PO; +DAILY MULTIPLE1 EACH PO; +NAPROXEN250 M1 PO; +SENNA8.6 M3 PO; +TRAMADOL HCL50 M1 PO
--- NOTE | 2016-08-22 08:45 | ED UPPER/LOWER EXTREMITY COMPL ---
History of Present Illness General Chief Complaint: Shoulder Injury Stated Complaint: BIBA, ? LEFT SHOULDER DISLOCATION S/P FALL Source: patient, family, old records Exam Limitations: no limitations Vital Signs & Intake/Output Vital Signs & Intake/Output Vital Signs Date Time Temp Pulse Resp B/P B/P Pulse O2 O2 Flow FiO2 Mean Ox Delivery Rate 08/22 1653 69 16 132/78 95 Room Air 08/22 1509 Room Air 1.0L 08/22 1238 96.6 100 20 146/70 94 Room Air 08/22 1130 94 18 132/57 96 Room Air 08/22 1116 98.6 93 18 129/63 98 Room Air 08/22 1058 96 18 136/64 98 Nasal 1.0L Cannula 08/22 1047 93 18 134/56 95 Nasal 1.0L Cannula 08/22 1042 97 18 152/70 96 Nasal 2.0L Cannula 08/22 1038 107 18 136/63 98 Nasal 2.0L Cannula 08/22 0944 104 20 151/72 96 Room Air 08/22 0846 98.4 94 18 123/63 98 Room Air Allergies Coded Allergies: NO KNOWN ALLERGIES (03/02/12) Reconcile Medications Alprazolam 0.5 MG TABLET 1 TAB PO QPM SLEEP (Reported) Amlodipine Besylate 10 MG TABLET 1 TAB PO DAILY HTN (Reported) Butalb/Acetaminophen/Caffeine (Yookyu-Odvnueni-Byjh 50-325-40) 50 MG-325 MG-40 MG TABLET 1 TAB PO BIDP PRN HEADACHE (Reported) Calcium Carb & Citrate/Vit D3 (Calcium + D3 ER Tablet) 600 MG CALCIUM-500 UNIT TABLET.ER 1 TAB PO DAILY OSTEOPOROSIS (Reported) Multivitamin (Daily Multiple Vitamin) 1 EACH TABLET 1 TAB PO DAILY SUPPLEMENT (Reported) Naproxen 250 MG TABLET 1 TAB PO BID PAIN (Reported) Oxycodone HCl/Acetaminophen (Percocet 5-325 MG Tablet) 5 MG-325 MG TABLET 1-2 TAB PO Q6P PRN PAIN Sennosides (Senna) 8.6 MG TABLET 2 TAB PO QPM CONSTIPATION (Reported) Tramadol HCl 50 MG TABLET 1 TAB PO TID PAIN (Reported) Warfarin Sodium (Coumadin) 4 MG TABLET 1 TAB PO DAILY dvt prophylaxis Triage Nurses Notes Reviewed? yes HPI: Patient was getting up to go to the bathroom when she slipped and fell out of bed and landed on her left shoulder. Patient denies hitting her head and there was no loss of consciousness. Patient is complaining of 10 out of 10 sharp stabbing pain to her left shoulder that increases with any movement. Patient denies any other injury. There is no radiation of the pain. The pain is constant. There is no numbness or tingling in her left arm or left hand. Patient was on Coumadin after her hip surgery but stopped last week. Past History Travel History Traveled to [place] past 21 day No Medical History Any Pertinent Medical History? see below for history Neurological: HEADACHES INSOMNIA EENT: NONE Cardiovascular: hypertension Respiratory: NONE Gastrointestinal: constipation, BRAXTON Hepatic: NONE Renal: NONE Musculoskeletal: degen joint disease, falls, osteoarthritis, VERTEBROPLASTY Psychiatric: anxiety Endocrine: NONE Blood Disorders: anemia Cancer(s): breast cancer EMAIL PRODUCTION CONSULTANT/Reproductive: NONE History of MRSA: No History of VRE: No History of CDIFF: No Surgical History Surgical History: cholecystectomy, masectomy, RIGHT KNEE ARTHOPLASTY VERTEBROPLASTY LUMBAR DISCECTOMY Psychosocial History Who do you live with Spouse Services at Home None What is your primary language [place] Citizen Tobacco Use: Never used ETOH Use: denies use Illicit Drug Use: denies illicit drug use Family History Hx Contributory? No Review of Systems Review of Systems Constitutional: Reports: no symptoms. EENTM: Reports: no symptoms. Respiratory: Reports: no symptoms. Cardiovascular: Reports: no symptoms. Gastrointestinal/Abdominal: Reports: no symptoms. Genitourinary: Reports: no symptoms. Musculoskeletal: Reports: see HPI, joint pain. Skin: Reports: no symptoms. Neurological/Psychological: Reports: no symptoms. Hematologic/Endocrine: Reports: no symptoms. Immunological: Reports: no symptoms. All Other Systems: Reviewed and Negative Physical Exam Physical Exam General Appearance: well developed/nourished, alert, awake, moderate distress Head: atraumatic, normal appearance Eyes: Bilateral: PERRL, EOMI. Ears, Nose, Throat: normal pharynx, normal ENT inspection, hearing grossly normal Neck: normal inspection, supple, full range of motion, no midline tenderness Cardiovascular/Respiratory: normal breath sounds, normal peripheral pulses, regular rate/rhythm, no respiratory distress Gastrointestinal: SOFT, +B.S., NO GUARDING OR REBOUND Back: normal inspection, normal range of motion, no vertebral tenderness Shoulder Left: bone tenderness, deformity, evidence of injury, soft tissue tenderness, limited range of motion Shoulder Right: normal range of motion, normal inspection Elbow Left: normal range of motion, normal inspection Hand Left: normal inspection, normal range of motion Neurologic/Tendon: normal sensation, normal motor functions, normal tendon functions Skin: intact, normal color, warm/dry Lymphatic: no anterior cervical awa Progress Differential Diagnosis: contusion, dislocation, fracture, sprain Plan of Care: Orders Procedure Date/time Status Regular Diet 08/22 D Active PT Evaluate & Treat 08/22 1350 Active Durable Medical Equipment 08/22 1015 Active Theraputic Activities 15 Min 08/22 UNK Complete Gait Training, 15 Min 08/22 UNK Complete PT EVAL LOW COMPLEX 20 MIN 08/22 UNK Complete Current Medications Sig/Edenilson Start time Last Medication Dose Stop Time Status Admin Amlodipine Besylate 10 MG DAILY 08/23 1000 UNVr (Norvasc) Alprazolam 0.5 MG QPM 08/22 2200 UNVr (Xanax) 08/29 2158 Naproxen 250 MG BID 08/22 220 UNVr (Naprosyn) Senna/Docusate Sodium 2 TAB DAILY PRN 08/22 1500 UNVr (Senokot S) Diagnostic Imaging: Viewed by Me: Radiology Read. Discussed w/RAD: Radiology Read. Radiology Impression: PATIENT: SERENA OROURKE PRESENT AGE: 85 PATIENT ACCOUNT NO: [id number] : 32 LOCATION: [facility] ORDERING PHYSICIAN: CHAGO ALSTON MD SERVICE DATE: 08/22/16 EXAM TYPE: RAD - XRY-SHOULDER COMPLETE-LEFT EXAMINATION: XR SHOULDER, LEFT CLINICAL INFORMATION: 85-year-old female patient with trauma after falling from bed. Per chart: History of left breast mastectomy and reconstruction. COMPARISON: None pertinent. (Right shoulder x-rays in June 2016). TECHNIQUE: AP and oblique views of the left shoulder. FINDINGS: The patient has incurred a subcoracoid anterior dislocation of the glenohumeral joint. There is no fracture. Surgical clips are seen in the left axilla. IMPRESSION: Subcoracoid anterior dislocation of the shoulder joint. DICTATED BY: LESLEY ROJAS MD DATE/TIME DICTATED:08/22/161051 LEARNING SUPPORT RESOURCE ROOM TEACHER:LUISA DATE/TIME TRANSCRIBED:08/22/161051 CONFIDENTIAL, DO NOT COPY WITHOUT APPROPRIATE AUTHORIZATION. <Electronically signed in Other Vendor System> SIGNED BY: LESLEY ROJAS MD 08/22/16 1054, PATIENT: SERENA OROURKE PRESENT AGE: 85 PATIENT ACCOUNT NO: [id number] : 32 LOCATION: [facility] ORDERING PHYSICIAN: CHAGO ALSTON MD SERVICE DATE: 08/22/16 EXAM TYPE: RAD - XRY- SHOULDER COMPLETE-LEFT EXAMINATION: XR SHOULDER, LEFT CLINICAL INFORMATION: Anterior dislocation of the left shoulder. COMPARISON: Prereduction films. TECHNIQUE: 2 views of the left shoulder. FINDINGS: The anterior dislocation has been successfully reduced. No fracture is seen. IMPRESSION: Successful reduction of the shoulder joint. DICTATED BY: LESLEY ROJAS MD DATE/TIME DICTATED:1121 LEARNING SUPPORT RESOURCE ROOM TEACHER:LUISA DATE/TIME TRANSCRIBED:08/22/161121 CONFIDENTIAL, DO NOT COPY WITHOUT APPROPRIATE AUTHORIZATION. <Electronically signed in Other Vendor System> SIGNED BY: LESLEY ROJAS MD 08/22/161125 Comments: Patient was unable to ambulate with her walker. The emergency department. Patient was seen by physical therapy who recommended short-term rehabilitation. Departure Departure Disposition: ACUTE REHAB FACILITY Condition: Stable Clinical Impression Primary Impression: Dislocation, shoulder, anterior Qualifiers: Encounter type: initial encounter Laterality: left Qualified Code: S43.015A - Anterior dislocation of left humerus, initial encounter Referrals: CHELSEA WHITEHEAD,ASIA AU MD,JOSI Kemp Additional Instructions: And cannot raise your hand above her head. Follow-up with Dr. Grande. Take Percocet as needed for severe pain. Return for any concerns. Departure Forms: Customer Survey General Discharge Information Prescriptions: Current Visit Scripts Oxycodone HCl/Acetaminophen (Percocet 5-325 MG Tablet) 1-2 TAB PO Q6P PRN PAIN #20 TAB Procedures Joint Reduction Joint Reduction Site: shoulder (L) Conscious Sedation: conscious sedation, performed by me Reduction Attempts: 1 Pre-Procedure NV Exam: Yes Post-Procedure NV Exam: Yes Post Joint Reduction Film: joint reduced
--- NOTE | 2016-08-22 10:59 | RADIOLOGY REPORT ---
EXAMINATION: XR SHOULDER, LEFT CLINICAL INFORMATION: 85-year-old female patient with trauma after falling from bed. Per chart: History of left breast mastectomy and reconstruction. COMPARISON: None pertinent. (Right shoulder x-rays in June 2016). TECHNIQUE: AP and oblique views of the left shoulder. FINDINGS: The patient has incurred a subcoracoid anterior dislocation of the glenohumeral joint. There is no fracture. Surgical clips are seen in the left axilla. IMPRESSION: Subcoracoid anterior dislocation of the shoulder joint.
--- NOTE | 2016-08-22 11:26 | RADIOLOGY REPORT ---
EXAMINATION: XR SHOULDER, LEFT CLINICAL INFORMATION: Anterior dislocation of the left shoulder. COMPARISON: Prereduction films. TECHNIQUE: 2 views of the left shoulder. FINDINGS: The anterior dislocation has been successfully reduced. No fracture is seen. IMPRESSION: Successful reduction of the shoulder joint.
[2016-08-22] MEDS ORDERED: PERCOCET 5-3251 EACH PO (11:30)
[2016-08-22 16:53] VITALS: BP 132/78
== END 2016-08-22 17:37 ==
LOC: ERH 08:39
DX: S43.005A Unspecified dislocation of left shoulder joint, initial encounter (principal); W06.XXXA Fall from bed, initial encounter; Y93.9 Activity, unspecified; Y92.9 Unspecified place or not applicable
CPT/HCPCS: 73030-LT; 96374; 96375; 97116-GP; 97161-GP; 97530-GP